=== PATIENT | male | born 1960 | race Caucasian/White ===

== ENCOUNTER 2017-03-29 07:10 | Emergency (ER) | payer OTHER ==
[2017-03-29 07:44] LABS: Basophils % (Auto) 0.4 % (0.0-1.8); Eosinophils % (Auto) 1.2 % (0.0-4.3); Hematocrit 40.9 % (35.5-45.6); Hemoglobin 13.8 gm/dl (11.8-15.2); Mean Corpuscular HGB Conc 34 % (32-34); Mean Corpuscular Hemoglobin 31 pg (28-32); Mean Corpuscular Volume 91 fl (84-94); Platelet Count 246 K/mm3 (140-440); Red Blood Count 4.51 M/mm3 (3.65-5.03); White Blood Count 11.4 K/mm3 (4.5-11.0)
[2017-03-29 08:03] LABS: Anion Gap 17 mmol/L; BUN/Creatinine Ratio 15.45; Blood Urea Nitrogen 17 mg/dL (9-20); Carbon Dioxide 26 mmol/L (22-30); Chloride 100.9 mmol/L (98-107); Glucose 102 mg/dL (75-100); Potassium 3.5 mmol/L (3.6-5.0); Sodium 140 mmol/L (137-145)
[2017-03-29] MEDS ORDERED: DECADRON IV ONE (09:10)
[2017-03-29] MEDS ORDERED: ZOFRAN IV ONE (09:10)
[2017-03-29] MEDS ORDERED: MORPHINE IV ONE (09:10)
[2017-03-29] MEDS ORDERED: APRESOLINE IV ONE (09:10)
[2017-03-29] MEDS ORDERED: NACL 0.9% 1000 ML 500 ML IV ONE (10:48)
[2017-03-29] MEDS ORDERED: NACL 0.9% 500 ML 500 ML ONE (10:49)
--- NOTE | 2017-03-29 10:54 | Emergency Department Report ---
ED General Adult HPI - General Chief complaint: Extremity Injury, Upper Stated complaint: PAIN IN LT ARM/LT KNEE Time Seen by Provider: 03/29/17 08:56 Source: patient, family Mode of arrival: Ambulatory Limitations: Language Barrier - History of Present Illness Initial comments: Patient states that intermittently he has pain and swelling of his right great toe. This pain sometimes involves his knee and the dorsum of his foot. This time he has acute pain in his left wrist. He has not been previously diagnosed with gout. He denies fever. He denies any symptoms. He hasn't been to the doctor in some time but does not have a previous history of hypertension. He presented to the emergency department with a blood pressure of 214/132. -: Gradual, week(s) (1-2 weeks wrist pain) Location: left, upper extremity Radiation: non-radiation Severity scale (0 -10): 10 Quality: aching Consistency: constant Improves with: none Worsens with: none Treatments Prior to Arrival: none - Related Data Previous Rx's Medication Instructions Recorded Last Taken Type HYDROcodone/APAP 5-325 [[place] 1 each PO Q6HR PRN #10 tablet 03/29/17 Unknown Rx 5/325] Indomethacin Sr (Nf) [Indocin Sr 75 mg PO Q12HR #10 capsule.er 03/29/17 Unknown Rx (Nf)] amLODIPine [Norvasc] 5 mg PO DAILY #30 tab 03/29/17 Unknown Rx Allergies Allergy/AdvReac Type Severity Reaction Status Date / Time No Known Allergies Allergy Unverified 03/29/17 07:15 ED Review of Systems ROS: Stated complaint: PAIN IN LT ARM/LT KNEE Other details as noted in HPI Constitutional: denies: chills, fever Eyes: denies: eye pain, eye discharge, vision change ENT: denies: ear pain, throat pain Respiratory: denies: cough, shortness of breath, wheezing Cardiovascular: denies: chest pain, palpitations Endocrine: no symptoms reported Gastrointestinal: denies: abdominal pain, nausea, diarrhea Genitourinary: denies: urgency, dysuria Musculoskeletal: as per HPI, joint swelling, arthralgia. denies: back pain Skin: denies: rash, lesions Neurological: denies: headache, weakness, paresthesias Psychiatric: denies: anxiety, depression Hematological/Lymphatic: denies: easy bleeding, easy bruising ED Past Medical Hx - Past Medical History Previous Medical History?: No - Surgical History Past Surgical History?: No - Social History Smoking Status: Never Smoker Substance Use Type: Alcohol - Medications Home Medications: Home Medications Medication Instructions Recorded Confirmed Last Taken Type HYDROcodone/APAP 5-325 [[place] 1 each PO Q6HR PRN #10 tablet 03/29/17 Unknown Rx 5/325] Indomethacin Sr (Nf) [Indocin Sr 75 mg PO Q12HR #10 capsule.er 03/29/17 Unknown Rx (Nf)] amLODIPine [Norvasc] 5 mg PO DAILY #30 tab 03/29/17 Unknown Rx ED Physical Exam - General General appearance: alert, in no apparent distress - Head Head exam: Present: atraumatic, normocephalic - Eye Eye exam: Present: normal appearance. Absent: scleral icterus - ENT ENT exam: Present: mucous membranes moist - Neck Neck exam: Present: normal inspection - Respiratory Respiratory exam: Present: normal lung sounds bilaterally. Absent: respiratory distress - Cardiovascular Cardiovascular Exam: Present: regular rate, normal rhythm. Absent: systolic murmur, diastolic murmur, rubs, gallop - GI/Abdominal GI/Abdominal exam: Present: soft, normal bowel sounds. Absent: distended, tenderness, guarding, rebound, rigid - Rectal Rectal exam: Present: deferred - Extremities Exam Extremities exam: Present: other (erythema and apparent effusion of the left wrist. Pain on range of motion. Appears typical for gout. No other articulations have positive findings. Feet look okay.) - Back Exam Back exam: Present: normal inspection - Neurological Exam Neurological exam: Present: alert, oriented X3, CN II-XII intact. Absent: motor sensory deficit - Psychiatric Psychiatric exam: Present: normal affect, normal mood - Skin Skin exam: Present: warm, dry, intact, normal color. Absent: rash ED Course Vital Signs 03/29/17 03/29/17 03/29/17 07:16 08:24 10:10 Temperature 98.1 F 98.9 F Pulse Rate 80 74 71 Respiratory 20 16 Rate Blood Pressure 214/132 158/89 Blood Pressure 159/99 [Right] O2 Sat by Pulse 98 98 Oximetry 03/29/17 10:12 Temperature Pulse Rate Respiratory 16 Rate Blood Pressure Blood Pressure [Right] O2 Sat by Pulse Oximetry - Reevaluation(s) Reevaluation #1: Patient's blood pressure was a little bit labile. First the nurse held the hydralazine and then later she gave it was in the systolic went to 180. (10 mg) . His blood pressure did drift down low my desired target. Therefore he was given a bolus of normal saline. On reevaluation he states that he feels fine. He'll be observed until his blood pressure has improved bit more. He will be discharged on amlodipine [place] and Indocin. He will be referred to [facility] 03/29/17 10:52 ED Medical Decision Making - Lab Data Result diagrams: 03/29/17 07:32 03/29/17 07:32 Laboratory Results - last 24 hr 03/29/17 03/29/17 07:32 07:32 WBC 11.4 H RBC 4.51 Hgb 13.8 Hct 40.9 MCV 91 MCH 31 MCHC 34 RDW 13.0 L Plt Count 246 Lymph % (Auto) 14.9 [place] % (Auto) 4.9 Eos % (Auto) 1.2 Baso % (Auto) 0.4 Lymph # 1.7 [place] # 0.6 Eos # 0.1 Baso # 0.0 Seg Neutrophils % 78.6 H Seg Neutrophils # 9.0 H Sodium 140 Potassium 3.5 L Chloride 100.9 Carbon Dioxide 26 Anion Gap 17 BUN 17 Creatinine 1.1 Estimated GFR > 60 BUN/Creatinine Ratio 15.45 Glucose 102 H Calcium 9.0 Troponin T < 0.010 - EKG Data -: EKG Interpreted by Me EKG shows normal: sinus rhythm, axis, intervals, ST-T waves - EKG Data Interpretation: LVH (consistent with LVH and associated changes) Critical care attestation.: If time is entered above; I have spent that time in minutes in the direct care of this critically ill patient, excluding procedure time. ED Disposition Clinical Impression: Acute gouty arthritis, Uncontrolled hypertension Disposition: - TO HOME OR SELFCARE Is pt being admited?: No Does the pt Need Aspirin: No Condition: Stable Instructions: Hypertension (ED), Acute Gouty Arthritis (ED) Additional Instructions: Follow-up with a primary care provider. Return any acute change or problem. Return if the joint swelling is not improved. Follow-up on your high blood pressure is essential. Prescriptions: amLODIPine [Norvasc] 5 mg PO DAILY #30 tab HYDROcodone/APAP 5-325 [[place] 5/325] 1 each PO Q6HR PRN #10 tablet PRN Reason: Pain Indomethacin Sr (Nf) [Indocin Sr (Nf)] 75 mg PO Q12HR #10 capsule.er Referrals: PRIMARY CARE, [Primary Care Provider] - 3-5 Days [facility] [Provider Group] - 3-5 Days Time of Disposition: 10:55
[2017-03-29 11:54] VITALS: BP 135/77
== END 2017-03-29 11:54 | disposition home or self-care (01) ==
LOC: ED 07:10
DX: I10 Essential (primary) hypertension (principal)
CPT/HCPCS: 36415; 80048; 84484; 85025; 93005; 93010; 96361; 96374; 96375; 99284; J0360; J1100; J2270; J2405; J7040

== ENCOUNTER 2017-05-28 09:15 | Emergency (ER) | payer OTHER ==
[2017-05-28] MEDS ORDERED: MOTRIN PO ONE (09:35)
--- NOTE | 2017-05-28 10:13 | XRay Report ---
Right hand: Pain. There is swelling around the mid hand and specifically along the dorsal and ulnar sides. No foreign body and no laceration identified. No underlying bone or joint abnormality. Impression: Nonspecific swelling.
[2017-05-28] MEDS ORDERED: CATAPRES PO ONE (12:22)
--- NOTE | 2017-05-28 12:28 | Emergency Department Report ---
Upper Extremity - HPI Chief Complaint: Extremity Injury, Upper Stated Complaint: RT HAND PAIN/EARS RINGING Upper Extremity: Right Hand Occurred When: 1 Day Mechanism: Other (pt has history of gout) Severity: mild Symptoms: Yes Pain with Movement, Yes Limited Range of Movement, Yes Swelling, No Deformity, No Numbness, No Weakness, No Bruising/Ecchymosis, No Laceration or Abrasion Other History: 57 year old male presents to ED with gout attack in right hand. patient has history of gout. patient is neurologically intact and in no acute distress. ED Review of Systems ROS: Stated complaint: RT HAND PAIN/EARS RINGING Other details as noted in HPI Constitutional: denies: chills, fever Eyes: denies: eye pain, eye discharge, vision change ENT: denies: ear pain, throat pain Respiratory: denies: cough, shortness of breath, wheezing Cardiovascular: denies: chest pain, palpitations Endocrine: no symptoms reported Gastrointestinal: denies: abdominal pain, nausea, diarrhea Genitourinary: denies: urgency, dysuria Musculoskeletal: joint swelling, arthralgia (right hand). denies: back pain Skin: denies: rash, lesions Neurological: denies: headache, weakness, paresthesias Psychiatric: denies: anxiety, depression Hematological/Lymphatic: denies: easy bleeding, easy bruising ED Past Medical Hx - Past Medical History Previous Medical History?: Yes Hx Hypertension: Yes - Surgical History Past Surgical History?: No - Social History Smoking Status: Unknown if ever smoked Substance Use Type: None - Medications Home Medications: Home Medications Medication Instructions Recorded Confirmed Last Taken Type HYDROcodone/APAP 5-325 [[place] 1 each PO Q6HR PRN #10 tablet 03/29/17 Unknown Rx 5/325] Indomethacin Sr (Nf) [Indocin Sr 75 mg PO QAM #20 capsule.er 05/28/17 Unknown Rx (Nf)] amLODIPine [Norvasc] 5 mg PO DAILY #30 tab 05/28/17 Unknown Rx Upper Extremity Exam - Exam General: Vital signs noted. No distress. Alert and acting appropriately. Head and Torso: No HEENT Abnormality, No Neck Tenderness, No Chest/Lungs Abnormality, No Abdominal Tenderness, No Back Tenderness Shoulder Exam: Yes Normal Range of Motion in Shoulder, No Shoulder Tenderness, No Clavicle Tenderness, No Shoulder Deformity, No AC Joint Tenderness Arm Exam: No Arm/Humerus Tenderness, No Arm Deformity Elbow: Yes Normal Range of Motion in Elbow, No Elbow Tenderness, No Elbow Deformity Forearm: No Forearm Tenderness, No Forearm Deformity, No Pain with Pronation, No Pain with Supination Wrist: No Wrist Tenderness, No Normal ROM in Wrist (limited ROM due to pain), No Wrist Deformity, No Snuffbox Tenderness, No Pain with Axial Thumb Compression Hand: Yes Hand Tenderness, No Hand Deformity, No Digit Tenderness, No Normal ROM in Digit(s) (limited ROM due to pain), No Digit(s) Deformity, No Tendon Dysfunction CMS Exam: Yes Normal Distal Pulses, Yes Normal Capillary Refill, Yes Normal Distal Sensation, No Broken Skin ED Course Vital Signs 05/28/17 09:22 Temperature 97.9 F Pulse Rate 68 Respiratory 16 Rate Blood Pressure 198/128 O2 Sat by Pulse 96 Oximetry ED Medical Decision Making - Lab Data Result diagrams: 05/28/17 12:45 05/28/17 12:45 Labs 05/28/17 05/28/17 12:45 12:45 WBC 9.0 RBC 4.26 Hgb 13.3 Hct 39.1 MCV 92 MCH 31 MCHC 34 RDW 13.0 L Plt Count 243 Lymph % (Auto) 17.0 [place] % (Auto) 5.9 Eos % (Auto) 1.4 Baso % (Auto) 0.4 Lymph # 1.5 [place] # 0.5 Eos # 0.1 Baso # 0.0 Seg Neutrophils % 75.3 H Seg Neutrophils # 6.8 Sodium 136 L Potassium 3.5 L Chloride 96.9 L Carbon Dioxide 27 Anion Gap 16 BUN 17 Creatinine 1.0 Estimated GFR > 60 BUN/Creatinine Ratio 17.00 Glucose 92 Calcium 9.4 - Radiology Data Radiology results: report reviewed XR hand nonspecific swelling. no foreign body or laceration identified. no underlying bone or joint abnormality. - Medical Decision Making 57 year old male presents to ED with gout attack in right hand/wrist. patient has no acute findings on xray other than nonspecific swelling. patient has decreased pain with norco, IM decadron and IM toradol during ED visit. patient is stable, neurologically intact and in no acute distress. I will also refill patient's BP medications. Patient agrees and understands to follow up with [facility] [place] ([place], [place]). Critical care attestation.: If time is entered above; I have spent that time in minutes in the direct care of this critically ill patient, excluding procedure time. ED Disposition Clinical Impression: Gout attack Qualifiers: Gout site: hand Gout etiology: unspecified cause Laterality: right Qualified Code(s): M10.9 - Gout, unspecified Disposition: TO HOME OR SELFCARE Is pt being admited?: No Does the pt Need Aspirin: No Condition: Stable Instructions: Acute Gouty Arthritis (ED) Additional Instructions: Please go to [facility] for PCP follow up. Prescriptions: amLODIPine [Norvasc] 5 mg PO DAILY #30 tab Indomethacin Sr (Nf) [Indocin Sr (Nf)] 75 mg PO QAM #20 capsule.er Referrals: PRIMARY CARE, [Primary Care Provider] - 3-5 Days
[2017-05-28] MEDS ORDERED: DECADRON IM ONE (12:30)
[2017-05-28] MEDS ORDERED: NORCO 7.5/325 PO ONE (12:30)
[2017-05-28] MEDS ORDERED: TORADOL IM ONE (12:31)
[2017-05-28 12:55] LABS: Basophils % (Auto) 0.4 % (0.0-1.8); Eosinophils % (Auto) 1.4 % (0.0-4.3); Hematocrit 39.1 % (35.5-45.6); Hemoglobin 13.3 gm/dl (11.8-15.2); Mean Corpuscular HGB Conc 34 % (32-34); Mean Corpuscular Hemoglobin 31 pg (28-32); Mean Corpuscular Volume 92 fl (84-94); Platelet Count 243 K/mm3 (140-440); Red Blood Count 4.26 M/mm3 (3.65-5.03)
[2017-05-28 13:12] LABS: Anion Gap 16 mmol/L; Blood Urea Nitrogen 17 mg/dL (9-20); Calcium 9.4 mg/dL (8.4-10.2); Carbon Dioxide 27 mmol/L (22-30); Chloride 96.9 mmol/L (98-107); Glucose 92 mg/dL (75-100); Potassium 3.5 mmol/L (3.6-5.0); Sodium 136 mmol/L (137-145)
[2017-05-28 13:53] VITALS: BP 147/93
== END 2017-05-28 13:53 | disposition home or self-care (01) ==
LOC: ED 09:15
DX: M10.9 Gout, unspecified (principal); I10 Essential (primary) hypertension
CPT/HCPCS: 36415; 73120; 80048; 85025; 96372; 99283; J1100; J1885

== ENCOUNTER 2020-06-15 12:30 | Inpatient (IN) | payer SELFPAY ==
[~2020-06-15 12:30] MED LIST: HEPARIN 10,000 UNITS/10 ML VIAL IV ONE
[2020-06-15] MEDS ORDERED: HEPARIN 1,000 UNIT/1 ML VIAL IV ONE (12:33)
--- NOTE | 2020-06-15 12:36 | Emergency Department Report ---
ED Chest Pain HPI - General Stated Complaint: CHEST PAIN Time Seen by Provider: 06/15/20 12:32 - History of Present Illness Initial Comments: This is a 60-year-old male presents to the emergency department from the office of [facility] after he was evaluated there for some dyspnea on exertion, orthopnea, and some chest and left shoulder pain. Patient does not speak [place]ian so information was obtained from his office note and af ter speaking with 1 of the cardiologists from that service. He appears to have a past medical history of gout, hypertension. He does not appear to be a tobacco smoker and there is no family history of known heart disease. The patient was being seen in the office and had an EKG that showed inferior ST elevations and Q waves but then the repeat EKG was normal with no Q waves and no ST elevation. The patient is going to the [facility] for further diagnostics. We have been asked to obtain cardiac labs and give the patient a 4000 unit heparin bolus. - Related Data Previous Rx's Medication Instructions Recorded Last Taken Type HYDROcodone/APAP 5-325 [[place] 1 each PO Q6HR PRN #10 tablet 03/29/17 Unknown Rx 5/325] Indomethacin Sr (Nf) [Indocin Sr 75 mg PO QAM #20 capsule.er 05/28/17 Unknown Rx (Nf)] amLODIPine 5 mg PO DAILY #30 tab 05/28/17 Unknown Rx Allergies Allergy/AdvReac Type Severity Reaction Status Date / Time No Known Allergies Allergy Verified 06/15/20 12:39 Heart Score - HEART Score History: Moderately suspicious EKG: Non-specific Age: 45-65 Risk factors: 1-2 risk factors Troponin: > 3x normal limit HEART Score: 6 - Critical Actions Critical Actions: 4-6 pts:12-16.6% risk of adverse cardiac event. Should be admitted ED Review of Systems ROS: Stated complaint: CHEST PAIN Other details as noted in HPI Comment: All other systems reviewed and negative Respiratory: orthopnea, shortness of breath Cardiovascular: chest pain. denies: palpitations Musculoskeletal: arthralgia. denies: joint swelling ED Past Medical Hx - Past Medical History Hx Hypertension: Yes - Social History Smoking Status: Unknown if ever smoked Substance Use Type: None - Medications Home Medications: Home Medications Medication Instructions Recorded Confirmed Last Taken Type HYDROcodone/APAP 5-325 [[place] 1 each PO Q6HR PRN #10 tablet 03/29/17 Unknown Rx 5/325] Indomethacin Sr (Nf) [Indocin Sr 75 mg PO QAM #20 capsule.er 05/28/17 Unknown Rx (Nf)] amLODIPine 5 mg PO DAILY #30 tab 05/28/17 Unknown Rx ED Physical Exam - Other Other exam information: GENERAL: The patient is well-developed well-nourished. HENT: Normocephalic. Atraumatic. Patient has moist mucous membranes. EYES: Extraocular motions are intact. NECK: Supple. Trachea is midline. CHEST/LUNGS: Clear to auscultation. There is no respiratory distress noted. HEART/CARDIOVASCULAR: Regular. There is no tachycardia. There is no murmur. ABDOMEN: Abdomen is soft, nontender. Patient has normal bowel sounds. SKIN: Skin is warm and dry. NEURO: The patient is awake, alert, and oriented. The patient is cooperative. Normal speech. MUSCULOSKELETAL: There is no tenderness or deformity. There is no evidence of acute injury. ED Medical Decision Making - Lab Data Result diagrams: 06/15/20 12:45 06/15/20 12:45 - EKG Data -: EKG Interpreted by Me EKG shows normal: sinus rhythm, axis, intervals, QRS complexes, ST-T waves (Isolated mild elevation to lead V6 and slight elevation in lead III. No reciprocal depressions) Rate: normal - EKG Data When compared to previous EKG there are: previous EKG unavailable Interpretation: other (Sinus rhythm at 67 bpm normal intervals, normal axis, slight ST elevation to lead V6 and lead III but no reciprocal depressions) - Radiology Data Radiology results: image reviewed interpreted by me: Chest x-ray shows some interstitial edema. No obvious pneumonia. No pneumothorax. - Medical Decision Making This patient was sent in from the deputy coroner investigator office to have a heart catheterization done. While there was some concern for ST elevation in the inferior leads at the cardiology office, the repeat EKG showed resolution of thi s and the patient was brought in for a heart catheterization. An EKG was also done in the emergency department that once again did not show ST elevation NH. Chest x-ray does not show any pneumonia, pneumothorax but does show some interstitial edema. Patient was given a heparin bolus and sent to the [facility]. In reviewing the patient's blood work, that came back after the patient left the emergency department, he has mild renal insufficiency and does have an elevated troponin level. I reviewed the O[facility] Technician report and the patient apparently had a 100% occlusion of the mid circumflex artery and had a drug- eluting stent placed. He was admitted to the ICU status post cath procedure. Critical Care Time: No Critical care attestation.: If time is entered above; I have spent that time in minutes in the direct care of this critically ill patient, excluding procedure time. ED Disposition Clinical Impression: Acute ST elevation myocardial infarction (STEMI) of inferior wall Hypertension Qualifiers: Hypertension type: essential hypertension Qualified Code(s): I10 - Essential (primary) hypertension Disposition: OP ADMIT IP TO THIS HOSP Is pt being admited?: Yes Condition: Serious Time of Disposition: 18:08
[2020-06-15] MEDS ORDERED: HEPARIN/NS 5000 UNIT/500ML 1,000 ML IR ONE (12:45)
[2020-06-15] MEDS ORDERED: SODIUM CHLORIDE 0.9% 1000 ML 1,000 ML ONE (12:46)
[2020-06-15 12:50] LABS: Basophils % (Auto) 0.6 % (0.0-1.8); Eosinophils # (Auto) 0.1 K/mm3 (0.0-0.4); Eosinophils % (Auto) 1.9 % (0.0-4.3); Hematocrit 32.8 % (35.5-45.6); Hemoglobin 11.4 gm/dl (11.8-15.2); Lymphocytes # (Auto) 1.4 K/mm3 (1.2-5.4); Lymphocytes % (Auto) 21.6 % (13.4-35.0); Mean Corpuscular HGB Conc 35 % (32-34); Mean Corpuscular Volume 92 fl (84-94); Monocytes # (Auto) 0.4 K/mm3 (0.0-0.8); Monocytes % (Auto) 5.7 % (0.0-7.3); Platelet Count 335 K/mm3 (140-440); Red Blood Count 3.58 M/mm3 (3.65-5.03); Red Cell Distribution Width 12.9 % (13.2-15.2)
[2020-06-15] MEDS: fentaNYL 100 MCG/2 ML INJ ONE ×2 (12:59→13:03)
[2020-06-15] MEDS: MIDAZOLAM 2 MG/2 ML INJ ONE ×2 (12:59→13:03)
[2020-06-15] MEDS: HEPARIN 10,000 UNITS/10 ML VIAL ONE ×4 (13:00→14:05)
[2020-06-15] MEDS: LIDOCAINE (2%) 20 MG/1 ML VIAL 20 ML MDV INFILTRATI ONE ×2 (13:00→13:06)
[2020-06-15] MEDS: VERAPAMIL 5 MG/2 ML INJ ONE ×2 (13:04→13:09)
[2020-06-15] MEDS: NITROGLYCERIN SYRINGE 3 ML ONE ×2 (13:04→13:09)
[2020-06-15 13:05] LABS: Creatine Kinase MB 2.5 ng/mL (0.0-4.0); Partial Thromboplastin Time 100.9 Sec. (24.2-36.6)
[2020-06-15] MEDS ORDERED: SODIUM CHLORIDE 0.9% IR ONE (13:41)
[2020-06-15] MEDS ORDERED: HEPARIN IR ONE (13:41)
[2020-06-15] MEDS ORDERED: CLOPIDOGREL 300 MG TAB ONE (14:02)
[2020-06-15 14:06] LABS: Chol/HDL Ratio 4.92 %
[2020-06-15] MEDS ORDERED: ALUM-MAG HYDROXIDE-SIMETHICONE 200-200-20MG/5ML ORAL LIQD 30 ML ONE (14:10)
[2020-06-15 14:20] LABS: Calcium 9.4 mg/dL (8.4-10.2)
[2020-06-15] MEDS ORDERED: SODIUM CHLORIDE 0.9% 1000 ML 1,000 ML IV SCH (14:30)
--- NOTE | 2020-06-15 14:33 | Consultation ---
History of Present Illness Consult date: 06/15/20 Consult reason: other (Acute STEMI) History of present illness: Patient is a 60-year-old Nigerian-speaking male, who presented to her doctor's office today with chest pain and shortness of breath. An EKG done by her senior administrator support in the office revealed transient acute ST elevation in the inferior leads. The patient was given 324 mg of aspirin, sent to the emergency room by ambulance and the hospital STEMI protocol was activated. On emergency cardiac catheterization, we found complete occlusion of the large mid obtuse marginal branch of the circumflex artery. Successful angioplasty was performed, with reestablishment of VINNIE-3 flow. A [id number] Xience drug-eluting stent was deployed covering the lesional segment, with an excellent angiographic result. The patient is admitted to the CCU for post MO management. Limited LV angiography showed a well-preserved overall ejection fraction of 50 to 55%. Past History Past Medical History: hypertension Medications and Allergies Allergies Allergy/AdvReac Type Severity Reaction Status Date / Time No Known Allergies Allergy Verified 06/15/20 12:39 Home Medications Medication Instructions Recorded Confirmed Last Taken Type HYDROcodone/APAP 5-325 [[place] 1 each PO Q6HR PRN #10 tablet 03/29/17 Unknown Rx 5/325] Indomethacin Sr (Nf) [Indocin Sr 75 mg PO QAM #20 capsule.er 05/28/17 Unknown Rx (Nf)] amLODIPine 5 mg PO DAILY #30 tab 05/28/17 Unknown Rx Review of Systems Cardiovascular: chest pain, shortness of breath, no orthopnea, no palpitations, no rapid/irregular heart beat, no edema, no syncope, no lightheadedness Physical Examination Vital Signs Temp Pulse Resp BP Pulse Ox 98.1 F 82 18 157/82 100 06/15/20 12:35 06/15/20 12:35 06/15/20 12:35 06/15/20 12:35 06/15/20 12:35 General appearance: no acute distress HEENT: Positive: PERRL Neck: Positive: neck supple Cardiac: Positive: Reg Rate and Rhythm Lungs: Positive: clear to auscultation Neuro: Positive: Grossly Intact Abdomen: Positive: Soft Male genitourinary: Positive: deferred Skin: Positive: Clear Extremities: Absent: edema Results 06/15/20 12:45 06/15/20 12:45 Cardiac Enzymes 06/15/20 Range/Units 12:45 CK-MB (CK-2) 2.5 (0.0-4.0) ng/mL Coagulation 06/15/20 Range/Units 12:45 PT 13.3 (12.2-14.9) Sec. INR 1.00 (0.87-1.13) APTT 100.9 H* (24.2-36.6) Sec. Lipids 06/15/20 Range/Units 12:45 Triglycerides 155 H (2-149) mg/dL Cholesterol 128 (50-199) mg/dL HDL Cholesterol 26 L (40-59) mg/dL Cholesterol/HDL Ratio 4.92 % CBC 06/15/20 Range/Units 12:45 WBC 6.6 (4.5-11.0) K/mm3 RBC 3.58 L (3.65-5.03) M/mm3 Hgb 11.4 L (11.8-15.2) gm/dl Hct 32.8 L (35.5-45.6) % Plt Count 335 (140-440) K/mm3 Lymph # 1.4 (1.2-5.4) K/mm3 [place] # 0.4 (0.0-0.8) K/mm3 Eos # 0.1 (0.0-0.4) K/mm3 Baso # 0.0 (0.0-0.1) K/mm3 Comprehensive Metabolic Panel 06/15/20 Range/Units 12:45 Sodium 136 L (137-145) mmol/L Potassium 3.9 (3.6-5.0) mmol/L Chloride 99.2 (98-107) mmol/L Carbon Dioxide 20 L (22-30) mmol/L BUN 27 H (9-20) mg/dL Creatinine 1.4 H (0.8-1.3) mg/dL Glucose 116 H (75-100) mg/dL Calcium 9.4 (8.4-10.2) mg/dL EKG interpretations - Telemetry EKG Rhythm: Sinus Rhythm Assessment and Plan - Patient Problems (1) Acute ST elevation myocardial infarction (STEMI) of inferior wall Current Visit: Yes Status: Acute Plan to address problem: Status post emergency cardiac catheterization, with successful angioplasty and stenting of a completely occluded mid obtuse marginal branch of the circumflex artery. Excellent angiographic result post coronary intervention. Admitted to the CCU for post intervention and post MO supportive management. Recommended medical therapy aspirin 325mg, Plavix 75mg, metoprolol 50mg twice daily, atorvastatin 40 mg daily, Imdur 30 mg daily.
[2020-06-15] MEDS: LISINOPRIL 5 MG TAB PO SCH (15:04)
[2020-06-15] MEDS: METOPROLOL TARTRATE 50 MG TAB PO SCH ×2 (15:04→21:59)
[2020-06-15] MEDS ORDERED: MORPHINE 4 MG/1 ML INJ IV PRN (15:13)
[2020-06-15] MEDS ORDERED: ACETAMINOPHEN 325 MG TAB PO PRN (15:13)
[2020-06-15] MEDS ORDERED: SENNOSIDES 8.6 MG TAB PO PRN (15:13)
--- NOTE | 2020-06-15 16:15 | Cardiac Catherization Report ---
CARDIAC CATHETERIZATION AND CORONARY ANGIOPLASTY REPORT REASON FOR PROCEDURE: The patient is a 60-year-old Faroese speaking male who presented to his development intern's office with chest pain and ECG demonstrated transient, inferior ST-elevation myocardial infarction. He was sent to the Emergency Room and STEMI protocol was activated. The patient was taken to the cardiac catheterization lab for emergency cardiac catheterization under STEMI protocol. PROCEDURES: 1. Left heart catheterization. 2. Selective left and right coronary angiography. 3. Left ventricular angiography. 4. Sedation time, start 13:07, end 14:00. The patient was prepped and draped in a sterile fashion under emergency protocol. The right radial cath site was prepped and draped after a negative Eliceo's test. The right radial artery was entered using the Seldinger technique followed by placement of a 6-Welsh hydrophilic sheath. Routine radial cocktail was administered via the sheath. Selective left and right coronary angiography was performed using #3.5 left Giovanni and #4 right Giovanni. The right Giovanni was used for left ventricular angiography. The angiograms were reviewed. CORONARY ANGIOGRAPHY: Left main coronary artery was free of significant disease. The left anterior descending artery contained mild diffuse atherosclerosis of its proximal, mid, and distal segments. There was mild atherosclerosis of the diagonal branches. The circumflex artery consists of one large obtuse marginal, which was occluded in its mid segment. This was the infarct-related lesion. The right coronary artery was dominant and contained diffuse mild atherosclerosis of its proximal, mid, and distal segments. Left ventricular systolic function was well preserved with ejection fraction of 50%-55%. CORONARY ANGIOPLASTY: We commenced with ad hoc, primary angioplasty of the circumflex. Optimal guide support was obtained using a 3.5 XB guiding catheter. A 0.014 inch [employer] 50 guidewire was used to successfully penetrate the occluded vessel, following wire placement, adequate predilatation balloon angioplasty was carried out using a 3.0 mm balloon catheter. VINNIE 3 flow was reestablished. We found a long segment of disease with significant residual stenosis. We then deployed a 3.5 x 33 mm Xience drug-eluting stent, covering the entire lesional segment. This stent was inflated to optimal pressures. We performed additional post-dilatation using a 4.0 x15 mm noncompliant balloon, following which there was an excellent angiographic result, 0 residual stenosis. VINNIE 3 flow was reestablished in the vessel post-intervention. CONCLUSION: 1. Acute inferior wall ST elevation myocardial infarction. 2. Emergency cardiac catheterization. 3. 100% occlusion of the mid circumflex artery is the infarct-related lesion. 4. Successful angioplasty and stenting with ultimate deployment of a 3.5 x 33 mm drug-eluting stent, postdilated with a 4.0 mm balloon catheter. 5. Well preserved overall left ventricular systolic ejection fraction of 50%-55%. RECOMMENDATIONS: The patient will be placed on optimal, guideline directed medical therapy including dual oral antiplatelet therapy with aspirin and Plavix, admitted to the CCU for post-KS supportive management. JOB# [id number] MACARIO/NTS
--- NOTE | 2020-06-15 17:21 | XRay Report ---
CHEST 1 VIEW INDICATION / CLINICAL INFORMATION: CP. COMPARISON: None available. FINDINGS: SUPPORT DEVICES: None. HEART / MEDIASTINUM: Borderline enlarged. LUNGS / PLEURA: There are diffuse interstitial opacities. No pneumothorax. No pleural effusion. ADDITIONAL FINDINGS: No significant additional findings. IMPRESSION: 1. Diffuse interstitial opacities are most compatible with pulmonary edema. 2. Borderline cardiomegaly. Signer Name: Nikos Sampson MD Signed: 06/15/2020 5:16 PM Workstation Name: [id number]
--- NOTE | 2020-06-15 17:54 | History and Physical Report ---
History of Present Illness Date of examination: 06/15/20 Date of admission: 06/15/20 15:13 Chief complaint: Sent from cardiology clinic for chest pain and abnormal EKG History of present illness: Mr. Segovia is a 60-year-old [id number]-nlsjlfqi male apparently was seen in the cardiology office earlier today for chest pain and was noted to have Q waves with ST elevations in the inferior leads and he was sent to the ED with STEMI protocol. Subsequently patient was taken to the [facility] and had successful angioplasty with drug-eluting stent into the left circumflex artery. Unable to get any history from the patient due to language barrier. He is alert and oriented and states that his chest pain has been resolved. He does not appear to be short of breath. ED and cardiology notes reviewed Past History Past Medical History: hypertension, other (Gout) Past Surgical History: No surgical history Social history: no significant social history Family history: no significant family history Medications and Allergies Allergies Allergy/AdvReac Type Severity Reaction Status Date / Time No Known Allergies Allergy Verified 06/15/20 12:39 Home Medications Medication Instructions Recorded Confirmed Last Taken Type HYDROcodone/APAP 5-325 [[place] 1 each PO Q6HR PRN #10 tablet 03/29/17 Unknown Rx 5/325] Indomethacin Sr (Nf) [Indocin Sr 75 mg PO QAM #20 capsule.er 05/28/17 Unknown Rx (Nf)] amLODIPine 5 mg PO DAILY #30 tab 05/28/17 Unknown Rx Active Meds: Active Medications Acetaminophen (Tylenol) 650 mg PO Q6H PRN PRN Reason: Pain MILD(1-3)/Fever >100.5/MORA Aspirin (Ecotrin) 325 mg PO QDAY RAÚL Atorvastatin Calcium (Lipitor) 40 mg PO QHS RAÚL Clopidogrel Bisulfate (Plavix) 75 mg PO QDAY [facility] Heparin Sodium (Porcine) (Heparin) 5,000 unit SUB-Q Q8HR RAÚL Sodium Chloride (Nacl 0.9% 1000 Ml) 1,000 mls @ 100 mls/hr IV DIRECT RAÚL Stop: 06/16/20 02:29 Isosorbide Mononitrate (Imdur) 30 mg PO QDAY [facility] Last Admin: 06/15/20 15:04 Dose: 30 mg Documented by: Lisinopril (Zestril) 5 mg PO QDAY RAÚL Last Admin: 06/15/20 15:04 Dose: 5 mg Documented by: Metoprolol Tartrate (Metoprolol) 50 mg PO BID [facility] Last Admin: 06/15/20 15:04 Dose: 50 mg Documented by: Morphine Sulfate (Morphine) 2 mg IV Q4H PRN PRN Reason: Pain , Severe (7-10) Senna (Senokot) 8.6 mg PO BID PRN PRN Reason: Constipation Sodium Chloride (Sodium Chloride Flush Syringe 10 Ml) 10 ml IV BID [facility] Sodium Chloride (Sodium Chloride Flush Syringe 10 Ml) 10 ml IV PRN PRN PRN Reason: LINE FLUSH Review of Systems All systems: negative (Limited due to language barrier and essentially unremarkable) Exam - Constitutional Vitals: Temp Pulse Resp BP Pulse Ox 98.1 F 63 19 152/96 95 06/15/20 12:35 06/15/20 16:00 06/15/20 16:00 06/15/20 16:00 06/15/20 16:00 General appearance: Present: no acute distress, well-nourished - EENT Eyes: Present: PERRL, EOM intact ENT: hearing intact, clear oral mucosa - Neck Neck: Present: supple, normal ROM - Respiratory Respiratory effort: normal Respiratory: bilateral: CTA - Cardiovascular Rhythm: regular Heart Sounds: Present: S1 & S2 - Extremities Extremities: No edema - Abdominal General gastrointestinal: Present: soft, non-tender. Absent: hepatomegaly, splenomegaly Male genitourinary: Present: deferred - Rectal Rectal Exam: deferred - Integumentary Integumentary: Present: clear - Musculoskeletal Musculoskeletal: strength equal bilaterally - Psychiatric Psychiatric: appropriate mood/affect - Neurologic Neurologic: no focal deficits HEART Score - HEART Score Troponin: Troponin T 2.940 ng/mL (0.00-0.029) H* 06/15/20 12:45 Results - Labs CBC & Chem 7: 06/15/20 12:45 06/15/20 12:45 Labs: Abnormal lab results 06/15/20 06/15/20 06/15/20 Range/Units 12:45 12:45 12:45 RBC 3.58 L (3.65-5.03) M/mm3 Hgb 11.4 L (11.8-15.2) gm/dl Hct 32.8 L (35.5-45.6) % MCHC 35 H (32-34) % RDW 12.9 L (13.2-15.2) % Seg Neutrophils % 70.2 H (40.0-70.0) % APTT 100.9 H* (24.2-36.6) Sec. Sodium 136 L (137-145) mmol/L Carbon Dioxide 20 L (22-30) mmol/L BUN 27 H (9-20) mg/dL Creatinine 1.4 H (0.8-1.3) mg/dL Glucose 116 H (75-100) mg/dL Total Creatine Kinase 7 L (55-170) units/L CK-MB (CK-2) Rel Index 35.7 H (0-4) Troponin T 2.940 H* (0.00-0.029) ng/mL Triglycerides 155 H (2-149) mg/dL HDL Cholesterol 26 L (40-59) mg/dL Assessment and Plan - Patient Problems (1) Acute ST elevation myocardial infarction (STEMI) of inferior wall Current Visit: Yes Status: Acute Plan to address problem: Status post LHC/PCI Cardiac cath note reviewed Continue beta-dov,. Statin, aspirin and Plavix and Imdur (2) Hypertension Current Visit: Yes Status: Chronic Qualifiers: Hypertension type: essential hypertension Qualified Code(s): I10 - E ssential (primary) hypertension Plan to address problem: Continue amlodipine (3) Acute kidney injury Current Visit: Yes Status: Acute Plan to address problem: Baseline renal function status is not known Avoid nephrotoxins Monitor renal function (4) Normocytic anemia Current Visit: Yes Status: Chronic Plan to address problem: Mild No overt bleed Monitor H&H
[2020-06-15] MEDS: HEPARIN 5,000 UNIT/1 ML VIAL SUB-Q SCH (22:02)
--- NOTE | 2020-06-16 03:18 | XRay Report ---
CHEST 1 VIEW INDICATION: post pci. COMPARISON: Previous day. FINDINGS: Support devices: None. Heart: Stable cardiomegaly. Lungs/Pleura: Increased interstitial markings remain with mild improvement. Additional findings: None. IMPRESSION: Mild improvement. Signer Name: Fan Keller MD Signed: 06/16/2020 3:14 AM Workstation Name: [id number]
[2020-06-16 05:56] LABS: Basophils % (Auto) 0.3 % (0.0-1.8); Eosinophils # (Auto) 0.2 K/mm3 (0.0-0.4); Eosinophils % (Auto) 2.6 % (0.0-4.3); Hemoglobin 9.9 gm/dl (11.8-15.2); Lymphocytes # (Auto) 0.9 K/mm3 (1.2-5.4); Lymphocytes % (Auto) 15.4 % (13.4-35.0); Mean Corpuscular HGB Conc 34 % (32-34); Mean Corpuscular Volume 94 fl (84-94); Monocytes # (Auto) 0.5 K/mm3 (0.0-0.8); Monocytes % (Auto) 7.5 % (0.0-7.3); Platelet Count 306 K/mm3 (140-440); Red Blood Count 3.09 M/mm3 (3.65-5.03); Red Cell Distribution Width 12.7 % (13.2-15.2)
[2020-06-16 06:22] LABS: Calcium 8.9 mg/dL (8.4-10.2)
--- NOTE | 2020-06-16 06:54 | Progress Note ---
Assessment and Plan Assessment and plan: --Acute inferior wall ST elevation myocardial infarction (STEMI) Current Visit: Yes Status: Acute Plan to address problem: S/P LHC/PCI 100% occlusion of the mid circumflex artery patient patient status post angioplasty and stenting KARLOS, LVEF 50 to 55% Continue dual antiplatelets, aspirin and Plavix Beta-blockers, SHIRLENE inhibitors, nitrates and statin Cardiology following --Anemia; drop in H&H Current Visit: Yes Status: Acute Plan to address problem: Hb dropped from 11.4 - 9.9 Repeat H&H, check any evidence of bleeding --Hypertension/well controlled Current Visit: Yes Status: Chronic Plan to address problem: Continue current antihypertensives Metoprolol, and lisinopril --Acute kidney injury/present on admission Current Visit: Yes Status: Acute Plan to address problem: Secondary to vasomotor nephropathy Resolved, creatinine within normal range Avoid nephrotoxins. --Dyslipidemia; Current Visit: Yes Status: Acute Plan to address problem: Statin, low-cholesterol diet. --DVT prophylaxis Current Visit: Yes Status: Acute Heparin/SCD We will closely monitor patient and adjust management as needed Follow cardiology recommendations, stable to be transferred out of ICU Plan of care reviewed with the patient and his nurse The high probability of a clinically significant, sudden or life threatening deterioration of the [Cardiovascular, renal and metabolic] system(s) required my full and direct attention, intervention and personal management.The aggregate critical care time was [32] minutes. This time is in addition to time spent performing reported procedures but includes the following: [x] Data Review and interpretation [x] Patient assessment and monitoring of vital signs [x] Documentation [x] Medication orders and management We will closely monitor the patient and adjust the management as needed Plan of care reviewed with the patient's nurse History Interval history: Patient was admitted with acute ST elevation [place] Underwent emergent left heart catheterization status post PCI I seen and examined the patient at the bedside this morning Patient feels better no new complaints, denies chest pain or shortness of breath Ate breakfast tolerated well Vital signs noted Hospitalist Physical - Constitutional Vitals: Temp Pulse Resp BP Pulse Ox 97.8 F 68 20 120/68 100 06/16/20 03:29 06/16/20 06:00 06/16/20 06:00 06/16/20 06:00 06/16/20 06:00 General appearance: Present: no acute distress, well-nourished - EENT Eyes: Present: PERRL, EOM intact - Neck Neck: Present: supple, normal ROM - Respiratory Respiratory effort: normal Respiratory: bilateral: diminished, negative: rales, rhonchi, wheezing - Cardiovascular Rhythm: regular Heart Sounds: Present: S1 & S2 - Extremities Extremities: no ischemia, No edema - Abdominal General gastrointestinal: soft, non-tender, non-distended, normal bowel sounds - Integumentary Integumentary: Present: clear, warm - Psychiatric Psychiatric: appropriate mood/affect, cooperative - Neurologic Neurologic: moves all extremities HEART Score - HEART Score EKG: Non-specific Age: 45-65 Risk factors: 1-2 risk factors Troponin: Troponin T 2.840 ng/mL (0.00-0.029) H* 06/16/20 04:20 Troponin: > 3x normal limit - Critical Actions Critical Actions: 4-6 pts:12-16.6% risk of adverse cardiac event. Should be admitted Results - Labs CBC & Chem 7: 06/16/20 10:05 06/16/20 04:20 Labs: Laboratory Last Values WBC 6.0 K/mm3 (4.5-11.0) 06/16/20 04:20 RBC 3.09 M/mm3 (3.65-5.03) L 06/16/20 04:20 Hgb 9.9 gm/dl (11.8-15.2) L 06/16/20 04:20 Hct 29.0 % (35.5-45.6) L 06/16/20 04:20 MCV 94 fl (84-94) 06/16/20 04:20 MCH 32 pg (28-32) 06/16/20 04:20 MCHC 34 % (32-34) 06/16/20 04:20 RDW 12.7 % (13.2-15.2) L 06/16/20 04:20 Plt Count 306 K/mm3 (140-440) 06/16/20 04:20 Lymph % (Auto) 15.4 % (13.4-35.0) 06/16/20 04:20 [place] % (Auto) 7.5 % (0.0-7.3) H 06/16/20 04:20 Eos % (Auto) 2.6 % (0.0-4.3) 06/16/20 04:20 Baso % (Auto) 0.3 % (0.0-1.8) 06/16/20 04:20 Lymph # 0.9 K/mm3 (1.2-5.4) L 06/16/20 04:20 [place] # 0.5 K/mm3 (0.0-0.8) 06/16/20 04:20 Eos # 0.2 K/mm3 (0.0-0.4) 06/16/20 04:20 Baso # 0.0 K/mm3 (0.0-0.1) 06/16/20 04:20 Seg Neutrophils % 74.2 % (40.0-70.0) H 06/16/20 04:20 Seg Neutrophils # 4.4 K/mm3 (1.8-7.7) 06/16/20 04:20 PT 13.3 Sec. (12.2-14.9) 06/15/20 12:45 INR 1.00 (0.87-1.13) 06/15/20 12:45 APTT 100.9 Sec. (24.2-36.6) H* 06/15/20 12:45 Sodium 138 mmol/L (137-145) 06/16/20 04:20 Potassium 4.0 mmol/L (3.6-5.0) 06/16/20 04:20 Chloride 101.6 mmol/L (98-107) 06/16/20 04:20 Carbon Dioxide 24 mmol/L (22-30) 06/16/20 04:20 Anion Gap 16 mmol/L 06/16/20 04:20 BUN 24 mg/dL (9-20) H 06/16/20 04:20 Creatinine 1.3 mg/dL (0.8-1.3) 06/16/20 04:20 Estimated GFR 57 ml/min 06/16/20 04:20 BUN/Creatinine Ratio 18 % 06/16/20 04:20 Glucose 94 mg/dL (75-100) 06/16/20 04:20 Calcium 8.9 mg/dL (8.4-10.2) 06/16/20 04:20 Total Creatine Kinase 152 units/L (55-170) 06/16/20 04:20 CK-MB (CK-2) 3.0 ng/mL (0.0-4.0) 06/16/20 04:20 CK-MB (CK-2) Rel Index 1.9 (0-4) 06/16/20 04:20 Troponin T 2.840 ng/mL (0.00-0.029) H* 06/16/20 04:20 Triglycerides 155 mg/dL (2-149) H 06/15/20 12:45 Cholesterol 128 mg/dL (50-199) 06/15/20 12:45 LDL Cholesterol Direct 84 mg/dL (50-130) 06/15/20 12:45 HDL Cholesterol 26 mg/dL (40-59) L 06/15/20 12:45 Cholesterol/HDL Ratio 4.92 % 06/15/20 12:45 Blood Type B POSITIVE 06/15/20 20:30 Antibody Screen Negative 06/15/20 20:30 [place]/IV: Voiding Method Urinal IV Catheter Type [Left Peripheral IV Antecubital] Active Medications - Current Medications Current Medications: Generic Name Dose Route Start Last Admin Trade Name Freq PRN Reason Stop Dose Admin Acetaminophen 650 mg 06/15/20 15:13 Tylenol PO Q6H PRN Pain MILD(1-3)/Fever >100.5/MORA Aspirin 325 mg 06/16/20 10:00 Ecotrin PO QDAY [facility] Atorvastatin Calcium 40 mg 06/15/20 22:00 06/15/20 22:00 Lipitor PO 40 mg QHS RAÚL Administration Clopidogrel Bisulfate 75 mg 06/16/20 10:00 Plavix PO QDAY [facility] Heparin Sodium (Porcine) 5,000 unit 06/15/20 22:00 06/15/20 22:02 Heparin SUB-Q 5,000 unit Q8HR RAÚL Administration Isosorbide Mononitrate 30 mg 06/15/20 15:00 06/15/20 15:04 Imdur PO 30 mg QDAY RAÚL Administration Lisinopril 5 mg 06/15/20 15:00 06/15/20 15:04 Zestril PO 5 mg QDAY [facility] Administration Metoprolol Tartrate 50 mg 06/15/20 15:00 06/15/20 21:59 Metoprolol PO 50 mg BID RAÚL Administration Morphine Sulfate 2 mg 06/15/20 15:13 Morphine IV Q4H PRN Pain , Severe (7-10) Senna 8.6 mg 06/15/20 15:13 Senokot PO BID PRN Constipation Sodium Chloride 10 ml 06/15/20 16:00 06/15/20 16:41 Sodium Chloride Flush Syringe 10 Ml IV 10 ml BID RAÚL Administration Sodium Chloride 10 ml 06/15/20 15:13 Sodium Chloride Flush Syringe 10 Ml IV PRN PRN LINE FLUSH
[2020-06-16] MEDS: HEPARIN 5,000 UNIT/1 ML VIAL SUB-Q SCH ×3 (07:18→22:05)
[2020-06-16 10:20] LABS: Hematocrit 29.5 % (35.5-45.6); Hemoglobin 10.3 gm/dl (11.8-15.2)
[2020-06-16] MEDS: LISINOPRIL 5 MG TAB PO SCH (11:27)
[2020-06-16] MEDS: ASPIRIN EC 325 MG TAB PO SCH (11:27)
[2020-06-16] MEDS: CLOPIDOGREL 75 MG TAB PO SCH (11:28)
[2020-06-16] MEDS: METOPROLOL TARTRATE 50 MG TAB PO SCH ×2 (11:28→22:04)
[2020-06-17] MEDS: HEPARIN 5,000 UNIT/1 ML VIAL SUB-Q SCH ×3 (05:23→22:47)
[2020-06-17 07:23] LABS: Basophils % (Auto) 0.6 % (0.0-1.8); Eosinophils # (Auto) 0.1 K/mm3 (0.0-0.4); Eosinophils % (Auto) 2.7 % (0.0-4.3); Hematocrit 33.6 % (35.5-45.6); Hemoglobin 11.4 gm/dl (11.8-15.2); Lymphocytes # (Auto) 0.9 K/mm3 (1.2-5.4); Lymphocytes % (Auto) 17.4 % (13.4-35.0); Mean Corpuscular HGB Conc 34 % (32-34); Mean Corpuscular Volume 93 fl (84-94); Monocytes # (Auto) 0.3 K/mm3 (0.0-0.8); Monocytes % (Auto) 5.6 % (0.0-7.3); Platelet Count 362 K/mm3 (140-440); Red Blood Count 3.62 M/mm3 (3.65-5.03); Red Cell Distribution Width 12.7 % (13.2-15.2)
[2020-06-17 07:34] LABS: Calcium 9.4 mg/dL (8.4-10.2)
[2020-06-17] MEDS: CLOPIDOGREL 75 MG TAB PO SCH (10:37)
[2020-06-17] MEDS: METOPROLOL TARTRATE 50 MG TAB PO SCH ×2 (10:37→22:47)
[2020-06-17] MEDS: ASPIRIN EC 325 MG TAB PO SCH (10:38)
[2020-06-17] MEDS: LISINOPRIL 5 MG TAB PO SCH (10:38)
--- NOTE | 2020-06-17 11:23 | Progress Note ---
Subjective Date of service: 06/17/20 Interval history: Impression Post STEMI and KARLOS 100% C/X, EF 50-55% at time of [place]. HTN Hyperlipidemia Plan Stable on floor so far. Cont meds, mild ectopy at time of my visit, cont BB. HCT has stabilized, cont DAPT Statin therapy initiated Reassess in AM Objective Vital Signs Temp Pulse Pulse Resp BP Pulse Ox 06/17/20 10:39 96 H 131/81 06/17/20 10:38 131/81 06/17/20 10:37 96 H 06/17/20 07:52 98.1 F 73 18 144/95 98 06/17/20 05:01 98.2 F 83 20 138/88 95 06/17/20 00:03 98.4 F 81 20 129/82 94 06/16/20 22:00 79 06/16/20 20:49 20 06/16/20 20:00 86 22 137/83 97 06/16/20 19:51 97.8 F 06/16/20 19:00 79 12 137/83 95 06/16/20 18:00 83 24 123/65 95 06/16/20 17:00 75 23 131/71 99 06/16/20 16:00 74 26 H 135/74 97 06/16/20 15:01 78 25 H 122/73 97 06/16/20 14:58 95 06/16/20 14:00 75 19 125/71 98 06/16/20 13:00 72 18 134/76 96 06/16/20 12:00 78 72 29 H 136/68 92 06/16/20 11:28 77 127/59 06/16/20 11:27 77 127/59 - Physical Examination HEENT: Positive: PERRL Neck: Positive: neck supple Cardiac: Positive: Reg Rate and Rhythm, Other (PVC) Lungs: Positive: Normal Exam Neuro: Positive: Grossly Intact Abdomen: Positive: Soft Skin: Positive: Clear Extremities: Absent: edema - Labs and Meds CBC 06/17/20 Range/Units 06:42 WBC 5.4 (4.5-11.0) K/mm3 RBC 3.62 L (3.65-5.03) M/mm3 Hgb 11.4 L (11.8-15.2) gm/dl Hct 33.6 L (35.5-45.6) % Plt Count 362 (140-440) K/mm3 Lymph # 0.9 L (1.2-5.4) K/mm3 [place] # 0.3 (0.0-0.8) K/mm3 Eos # 0.1 (0.0-0.4) K/mm3 Baso # 0.0 (0.0-0.1) K/mm3 Comprehensive Metabolic Panel 06/17/20 Range/Units 06:42 Sodium 140 (137-145) mmol/L Potassium 4.0 (3.6-5.0) mmol/L Chloride 102.9 (98-107) mmol/L Carbon Dioxide 24 (22-30) mmol/L BUN 21 H (9-20) mg/dL Creatinine 1.4 H (0.8-1.3) mg/dL Glucose 97 (75-100) mg/dL Calcium 9.4 (8.4-10.2) mg/dL
--- NOTE | 2020-06-17 13:31 | Progress Note ---
Assessment and Plan Assessment and plan: --Paroxysmal A. fib flutter: Current Visit: Yes Status: Acute . Plan to address problem: Continue beta-blockers And defer anticoagulation to cardiology --Acute inferior wall ST elevation myocardial infarction (STEMI) Current Visit: Yes Status: Acute Plan to address problem: S/P LHC/PCI 100% occlusion of the mid circumflex artery patient patient status post angioplasty and stenting KARLOS, LVEF 50 to 55% Continue dual antiplatelets, aspirin and Plavix Beta-blockers, SHIRLENE inhibitors, nitrates and statin Cardiology following --Mild drop in H&H, resolved Current Visit: Yes Status: Acute Plan to address problem: Hb dropped from 11.4 - 9.9 -11.4 Repeat H&H, check any evidence of bleeding Change probably secondary to hemodilution --Hypertension/well controlled Current Visit: Yes Status: Chronic Plan to address problem: Continue current antihypertensives Metoprolol, and lisinopril --Acute kidney injury/present on admission Current Visit: Yes Status: Acute Plan to address problem: Secondary to vasomotor nephropathy Resolved, creatinine within normal range Avoid nephrotoxins. --Dyslipidemia; Current Visit: Yes Status: Acute Plan to address problem: Statin, low-cholesterol diet. --DVT prophylaxis Current Visit: Yes Status: Acute Heparin/SCD We will closely monitor patient and adjust management as needed Possible discharge home tomorrow if stable Plan of care reviewed with the patient and his nurse History Interval history: I have seen and examined the patient at the bedside this morning Patient's chart and medications reviewed Patient feels better no new complaints Had an episode of paroxysmal A. fib flutter Denies any chest pain no palpitations Vital signs reviewed Hospitalist Physical - Constitutional Vitals: Temp Pulse Resp BP Pulse Ox 98.1 F 96 H 20 131/81 98 06/17/20 07:52 06/17/20 10:39 06/17/20 10:37 06/17/20 10:39 06/17/20 07:52 General appearance: Present: no acute distress, well-nourished - EENT Eyes: Present: PERRL, EOM intact - Neck Neck: Present: supple, normal ROM - Respiratory Respiratory effort: normal Respiratory: bilateral: diminished, negative: rales, rhonchi, wheezing - Cardiovascular Rhythm: regular Heart Sounds: Present: S1 & S2 - Extremities Extremities: no ischemia, No edema - Abdominal General gastrointestinal: soft, non-tender, non-distended, normal bowel sounds - Integumentary Integumentary: Present: clear, warm - Psychiatric Psychiatric: appropriate mood/affect, cooperative - Neurologic Neurologic: moves all extremities HEART Score - HEART Score EKG: Non-specific Age: 45-65 Risk factors: 1-2 risk factors Troponin: Troponin T 2.840 ng/mL (0.00-0.029) H* 06/16/20 04:20 Troponin: > 3x normal limit - Critical Actions Critical Actions: 4-6 pts:12-16.6% risk of adverse cardiac event. Should be admitted Results - Labs CBC & Chem 7: 06/17/20 06:42 06/17/20 06:42 Labs: Laboratory Last Values WBC 5.4 K/mm3 (4.5-11.0) 06/17/20 06:42 RBC 3.62 M/mm3 (3.65-5.03) L 06/17/20 06:42 Hgb 11.4 gm/dl (11.8-15.2) L 06/17/20 06:42 Hct 33.6 % (35.5-45.6) L 06/17/20 06:42 MCV 93 fl (84-94) 06/17/20 06:42 MCH 31 pg (28-32) 06/17/20 06:42 MCHC 34 % (32-34) 06/17/20 06:42 RDW 12.7 % (13.2-15.2) L 06/17/20 06:42 Plt Count 362 K/mm3 (140-440) 06/17/20 06:42 Lymph % (Auto) 17.4 % (13.4-35.0) 06/17/20 06:42 Bowie % (Auto) 5.6 % (0.0-7.3) 06/17/20 06:42 Eos % (Auto) 2.7 % (0.0-4.3) 06/17/20 06:42 Baso % (Auto) 0.6 % (0.0-1.8) 06/17/20 06:42 Lymph # 0.9 K/mm3 (1.2-5.4) L 06/17/20 06:42 Bowie # 0.3 K/mm3 (0.0-0.8) 06/17/20 06:42 Eos # 0.1 K/mm3 (0.0-0.4) 06/17/20 06:42 Baso # 0.0 K/mm3 (0.0-0.1) 06/17/20 06:42 Seg Neutrophils % 73.7 % (40.0-70.0) H 06/17/20 06:42 Seg Neutrophils # 4.0 K/mm3 (1.8-7.7) 06/17/20 06:42 PT 13.3 Sec. (12.2-14.9) 06/15/20 12:45 INR 1.00 (0.87-1.13) 06/15/20 12:45 APTT 100.9 Sec. (24.2-36.6) H* 06/15/20 12:45 Sodium 140 mmol/L (137-145) 06/17/20 06:42 Potassium 4.0 mmol/L (3.6-5.0) 06/17/20 06:42 Chloride 102.9 mmol/L (98-107) 06/17/20 06:42 Carbon Dioxide 24 mmol/L (22-30) 06/17/20 06:42 Anion Gap 17 mmol/L 06/17/20 06:42 BUN 21 mg/dL (9-20) H 06/17/20 06:42 Creatinine 1.4 mg/dL (0.8-1.3) H 06/17/20 06:42 Estimated GFR 52 ml/min 06/17/20 06:42 BUN/Creatinine Ratio 15 % 06/17/20 06:42 Glucose 97 mg/dL (75-100) 06/17/20 06:42 POC Glucose 104 (70-105) 06/16/20 16:38 Calcium 9.4 mg/dL (8.4-10.2) 06/17/20 06:42 Total Creatine Kinase 152 units/L (55-170) 06/16/20 04:20 CK-MB (CK-2) 3.0 ng/mL (0.0-4.0) 06/16/20 04:20 CK-MB (CK-2) Rel Index 1.9 (0-4) 06/16/20 04:20 Troponin T 2.840 ng/mL (0.00-0.029) H* 06/16/20 04:20 Triglycerides 155 mg/dL (2-149) H 06/15/20 12:45 Cholesterol 128 mg/dL (50-199) 06/15/20 12:45 LDL Cholesterol Direct 84 mg/dL (50-130) 06/15/20 12:45 HDL Cholesterol 26 mg/dL (40-59) L 06/15/20 12:45 Cholesterol/HDL Ratio 4.92 % 06/15/20 12:45 Blood Type B POSITIVE 06/15/20 20:30 Antibody Screen Negative 06/15/20 20:30 Rutledge/IV: Voiding Method Urinal IV Catheter Type [Left Peripheral IV Antecubital] Active Medications - Current Medications Current Medications: Generic Name Dose Route Start Last Admin Trade Name Freq PRN Reason Stop Dose Admin Acetaminophen 650 mg 06/15/20 15:13 06/16/20 22:04 Tylenol PO 650 mg Q6H PRN Administration Pain MILD(1-3)/Fever >100.5/MORA Aspirin 325 mg 06/16/20 10:00 06/17/20 10:38 Ecotrin PO 325 mg QDAY RAÚL Administration Atorvastatin Calcium 40 mg 06/15/20 22:00 06/16/20 22:04 Lipitor PO 40 mg QHS RAÚL Administration Clopidogrel Bisulfate 75 mg 06/16/20 10:00 06/17/20 10:37 Plavix PO 75 mg QDAY RAÚL Administration Heparin Sodium (Porcine) 5,000 unit 06/15/20 22:00 06/17/20 05:23 Heparin SUB-Q 5,000 unit Q8HR RAÚL Administration Isosorbide Mononitrate 30 mg 06/15/20 15:00 06/17/20 10:39 Imdur PO 30 mg QDAY RAÚL Administration Lisinopril 5 mg 06/15/20 15:00 06/17/20 10:38 Zestril PO 5 mg QDAY RAÚL Administration Metoprolol Tartrate 50 mg 06/15/20 15:00 06/17/20 10:37 Metoprolol PO 50 mg BID RAÚL Administration Morphine Sulfate 2 mg 06/15/20 15:13 Morphine IV Q4H PRN Pain , Severe (7-10) Senna 8.6 mg 06/15/20 15:13 Senokot PO BID PRN Constipation Sodium Chloride 10 ml 06/15/20 16:00 06/16/20 22:05 Sodium Chloride Flush Syringe 10 Ml IV 10 ml BID RAÚL Administration Sodium Chloride 10 ml 06/15/20 15:13 Sodium Chloride Flush Syringe 10 Ml IV PRN PRN LINE FLUSH Nutrition/Malnutrition Assess - Dietary Evaluation Nutrition/Malnutrition Findings: Nutrition Notes Start: 06/16/20 10:18 Freq: Status: Active Protocol: Document 06/16/20 10:18 LP (Rec: 06/16/20 10:26 LP [id number]) Nutrition Notes Need for Assessment generated from: hook up Initial or Follow up Brief Note Current Diagnosis Acute Kidney Injury, Hypertension Other Pertinent Diagnosis STEMI Current Diet Cardiac Labs/Tests BUN 24 Pertinent Medications Reviewed Height 5 ft 8 in Weight 97.522 kg [place] Body Weight (kg) 70.00 BMI 32.6 Weight Status Obese Subjective/Other Information Screen for MST. 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 Pt states eating fast food and zambian food often. #1 Nutrition Diagnosis Food and nutrition-related knowledge deficit Etiology cardiac diet As Evidenced by Signs and Symptoms Pt states eating a lot and not healthy choices Nutrition Intervention Teaching Recipient Patient Learning Readiness language Teaching Methods Discussion,Handout Response to Teaching Verbalize understanding Education Handouts Provided heart healthy diet in Upper Sor[place] Barriers to Learning Language RD phone number provided Yes Patient aware of follow up options Yes Revisit per MD consult or patient Sign Off request:
[2020-06-18] MEDS: HEPARIN 5,000 UNIT/1 ML VIAL SUB-Q SCH (06:04)
[2020-06-18 08:24] LABS: BUN/Creatinine Ratio 15; Blood Urea Nitrogen 18 mg/dL (9-20); Calcium 9.4 mg/dL (8.4-10.2); Hemolysis Index 0
--- NOTE | 2020-06-18 12:12 | Progress Note ---
Assessment and Plan - Patient Problems (1) Acute ST elevation myocardial infarction (STEMI) of inferior wall Current Visit: Yes Status: Acute Plan to address problem: Status post emergency cardiac catheterization, with successful angioplasty and stenting of a completely occluded mid obtuse marginal branch of the circumflex artery. Excellent angiographic result post coronary intervention. Recommended medical therapy aspirin 325mg, Plavix 75mg, metoprolol 50mg twice daily, atorvastatin 40 mg daily, Imdur 30 mg daily. (2) Paroxysmal atrial flutter Current Visit: Yes Status: Acute Plan to address problem: We will treat the patient with a triple therapy with baby aspirin, Plavix 75 mg and Eliquis. Continue optimal beta-blockers. Otherwise, patient is okay for cardiac discharge Subjective Date of service: 06/18/20 Interval history: Patient looks and feels better, no further cardiac complaints. It will be recalled that he presented with ST segment elevation myocardial infarction, underwent cardiac catheterization with successful intervention to an occluded mid circumflex. His post intervention post MO course has been notable for the development of transient atrial flutter. The patient is currently back in a stable sinus rhythm, heart rate 80. Objective Vital Signs Temp Pulse Resp BP BP Pulse Ox 06/18/20 07:00 98 F 88 174/103 06/18/20 05:05 98.0 F 84 18 154/99 100 06/18/20 04:11 76 06/18/20 00:07 98.0 F 76 18 145/95 100 06/17/20 22:47 82 141/88 06/17/20 18:56 98.9 F 82 20 141/88 100 - Physical Examination General: No Apparent Distress HEENT: Positive: PERRL Neck: Positive: neck supple Cardiac: Positive: Reg Rate and Rhythm Lungs: Positive: Decreased Breath Sounds Neuro: Positive: Grossly Intact Abdomen: Positive: Soft Skin: Positive: Clear Extremities: Absent: edema - Labs and Meds Comprehensive Metabolic Panel 06/18/20 Range/Units 07:56 Sodium 139 (137-145) mmol/L Potassium 4.3 (3.6-5.0) mmol/L Chloride 101.8 (98-107) mmol/L Carbon Dioxide 26 (22-30) mmol/L BUN 18 (9-20) mg/dL Creatinine 1.2 (0.8-1.3) mg/dL Glucose 98 (75-100) mg/dL Calcium 9.4 (8.4-10.2) mg/dL
[2020-06-18 12:50] VITALS: BP 161/102
[2020-06-18] MEDS ORDERED: APIXABAN 2.5 MG TAB PO SCH (13:00)
[2020-06-18] MEDS: ASPIRIN EC 325 MG TAB PO SCH (13:19)
[2020-06-18] MEDS: METOPROLOL TARTRATE 50 MG TAB PO SCH (13:19)
[2020-06-18] MEDS: LISINOPRIL 5 MG TAB PO SCH (13:19)
[2020-06-18] MEDS: CLOPIDOGREL 75 MG TAB PO SCH (13:24)
--- NOTE | 2020-06-18 14:27 | Discharge Summary ---
Providers - Providers Date of Admission: 06/15/20 15:13 Date of discharge: 06/18/20 Attending physician: AI SEPULVEDA 06/15/20 Consult to Cardiac Rehabilitation [CONS] Routine Reason For Exam: post pci 06/16/20 15:44 Consult to Physician [CONS] Routine Comment: Consulting Provider: ALEJANDRINA TRIPLETT Physician Instructions: Reason For Exam: STEMI s/p PCI Primary care physician: CLEARANCE DIVER Hospitalization Condition: Serious Disposition: DC-30 STILL A PATIENT Core Measure Documentation - Palliative Care Palliative Care/ Comfort Measures: Not Applicable - Core Measures Any of the following diagnoses?: acute [place] - Acute [place] Discharge Requirements Aspirin at discharge: Yes SHIRLENE/ARB for LVSD if EF <40%: Yes Beta dov at discharge: Yes Statin for LDL = or >100 mg/dl on DC: Yes Exam - Constitutional Vitals: Temp Pulse Resp BP Pulse Ox 98.3 F 89 20 161/102 98 06/18/20 12:27 06/18/20 13:19 06/18/20 12:27 06/18/20 12:27 06/18/20 12:27 General appearance: Present: no acute distress, well-nourished - EENT Eyes: Present: PERRL, EOM intact - Neck Neck: Present: supple, normal ROM - Respiratory Respiratory effort: normal Respiratory: bilateral: diminished, negative: rales, rhonchi, wheezing - Cardiovascular Rhythm: regular Heart Sounds: Present: S1 & S2 - Extremities Extremities: no ischemia, No edema - Abdominal General gastrointestinal: Present: soft, non-tender, non-distended, normal bowel sounds - Integumentary Integumentary: Present: clear, warm - Musculoskeletal Musculoskeletal: strength equal bilaterally - Psychiatric Psychiatric: appropriate mood/affect, cooperative - Neurologic Neurologic: CNII-XII intact, moves all extremities Plan Activity: no restrictions Diet: other (Cardiac diet ) Additional Instructions: If you have worsening symptoms contact MD or go to emergency room. Advised to comply with medications, diet, follow-up visits Follow up with: IDLAIA FERNÁNDEZ MD [Primary Care Provider] - 7 Days ALEJANDRINA TRIPLETT MD [Staff Physician] - 7 Days Prescriptions: Apixaban [Eliquis] 2.5 mg PO Q12HR #60 tablet Aspirin EC [Halfprin EC] 81 mg PO QDAY #30 tablet ISOSORBIDE MONOnitrate [Imdur ER] 30 mg PO QDAY #30 tablet AtorvaSTATin [Lipitor] 40 mg PO QHS #30 tablet Metoprolol [Lopressor TAB] 50 mg PO BID #60 tablet Clopidogrel [Plavix] 75 mg PO QDAY #30 tablet lisinopriL [Zestril TAB] 5 mg PO QDAY #30 tablet
[2020-06-19] MEDS ORDERED: ASPIRIN EC 81 MG TAB PO SCH (10:00)
== END 2020-06-18 18:00 | disposition home or self-care (01) | DRG 246 ==
LOC: CATH 12:30 → ED 12:30 → EDSTATUS 13:00 → CC1 15:13 → 4A 06-16 20:24
PROVIDERS: ADMIT Internal Medicine; ATTEND Internal Medicine
PROC: 027034Z Dilation of Coronary Artery, One Artery with Drug-eluting Intraluminal Device, Percutaneous Approach (ICD-10-PCS; principal; 2020-06-15)
PROC: 4A023N7 Measurement of Cardiac Sampling and Pressure, Left Heart, Percutaneous Approach (ICD-10-PCS; 2020-06-15)
PROC: B2111ZZ Fluoroscopy of Multiple Coronary Arteries using Low Osmolar Contrast (ICD-10-PCS; 2020-06-15)
PROC: B2151ZZ Fluoroscopy of Left Heart using Low Osmolar Contrast (ICD-10-PCS; 2020-06-15)
DX: I21.19 ST elevation (STEMI) myocardial infarction involving other coronary artery of inferior wall (principal); N17.0 Acute kidney failure with tubular necrosis; I48.92 Unspecified atrial flutter; I48.91 Unspecified atrial fibrillation; I10 Essential (primary) hypertension; D64.9 Anemia, unspecified; E78.5 Hyperlipidemia, unspecified
CPT/HCPCS: 36415; 71045; 80048; 80061; 82550; 82553; 82962; 84484; 85014; 85018; 85025; 85610; 85730; 86850; 86900; 86901; 92941; 93005; 93458; G0378; A9270-GY; C1725; C1769; C1874; C1887; C1894; C9606; J1644; J2250; J2270; J3010; J7030; Q9967

== ENCOUNTER 2020-12-24 13:22 | Observation (INO) | payer SELFPAY ==
--- NOTE | 2020-12-24 13:35 | Emergency Department Report ---
Blank Doc - Documentation Documentation: 60-year-old male that presents with chest pain with shortness of breath. Kyleigh ent was sent by urgent care also for uncontrolled hypertension. 1- This initial assessment/diagnostic orders/clinical plan/ treatment(s) is/are subject to change based on pt's health status, clinical progression and re- assessment by fellow clinical providers in the ED. Further treatment and workup at subsequent clinical provers discretion. Patient/guardians urged not to elope from ED as their condition may be serious if not clinically assessed and managed. 2-cardiac work-up
[2020-12-24 14:03] LABS: Basophils # (Auto) 0.1 K/mm3 (0.0-0.1); Eosinophils # (Auto) 0.2 K/mm3 (0.0-0.4); Eosinophils % (Auto) 3.3 % (0.0-4.3); Hematocrit 41.6 % (35.5-45.6); Hemoglobin 13.7 gm/dl (11.8-15.2); Lymphocytes # (Auto) 1.7 K/mm3 (1.2-5.4); Lymphocytes % (Auto) 30.9 % (13.4-35.0); Mean Corpuscular HGB Conc 33 % (32-34); Mean Corpuscular Volume 96 fl (84-94); Monocytes # (Auto) 0.5 K/mm3 (0.0-0.8); Monocytes % (Auto) 8.1 % (0.0-7.3); Platelet Count 148 K/mm3 (140-440); Red Blood Count 4.33 M/mm3 (3.65-5.03); Red Cell Distribution Width 18.8 % (13.2-15.2)
[2020-12-24 14:13] LABS: INR 1.16 (0.87-1.13)
--- NOTE | 2020-12-24 14:25 | XRay Report ---
CHEST 2 VIEWS INDICATION: Chest Pain. COMPARISON: 06/16/2020 FINDINGS: Support devices: None. Heart: Stable mild cardiomegaly Lungs/pleura: No acute air space or interstitial disease. No pneumothorax. Additional findings: None. IMPRESSION: Cardiomegaly Signer Name: Kory Diggs Jr, MD Signed: 12/24/2020 2:21 PM Workstation Name: [id number]
[2020-12-24 14:26] LABS: Albumin 3.8 g/dL (3.9-5); Calcium 9.3 mg/dL (8.4-10.2)
[2020-12-24 17:15] LABS: Bilirubin,Urine NEG (Negative); Blood,Urine NEG (Negative); Color,Urine Yellow (Yellow); Urobilinogen,Urine < 2.0 mg/dL (<2.0)
[2020-12-24 17:18] LABS: WBC,Urine < 1.0 /HPF (0.0-6.0)
[2020-12-24] MEDS ORDERED: ASPIRIN 325 MG TAB PO ONE (17:18)
--- NOTE | 2020-12-24 17:18 | Emergency Department Report ---
ED Chest Pain HPI - General Chief Complaint: Medical Clearance Stated Complaint: HBP 180/120 Time Seen by Provider: 12/24/20 13:29 Source: patient Mode of arrival: Ambulatory Limitations: Language Barrier - History of Present Illness Initial Comments: 60-year-old male with history of CAD (STEMI 05/2020 with left circumflex stent), hypertension, paroxysmal a flutter, presents to ED with complaint of chest pain. Patient states he has been having worsening chest pressure/tightness and dyspnea on exertion over the past month. Patient went to see his primary care physician at [facility] today, he was sent to the emergency room for elevated blood pressure. Patient states he has been compliant with his BP meds. Patient reports chest pressure and tightness with exertion. He denies any associated nausea, vomiting, diaphoresis, dizziness. Patient reports his last appointment with his java web application developer was in September 2020. Patient denies any history of COVID-19. He denies any recent cough or fever. Manager Drug: Dr Hermila Rizvi ([facility]) Complaint: chest pain -: month(s) (1) Onset: during exertion Pain Location: epigastric Pain Radiation: none Severity: moderate Severity scale (0 -10): 0 Quality: tightness, pressure Consistency: intermittent Improves With: rest Worsens With: exertion re: dyspnea. denies: nausea, vomting, diaphoresis Other Symptoms: denies: cough, fever - Related Data Home Medications Medication Instructions Recorded Confirmed Last Taken Colchicine [Colcrys] 0.6 mg PO BID 12/24/20 12/24/20 Unknown Furosemide [Lasix] 20 mg PO QDAY 12/24/20 12/24/20 Unknown Metoprolol [Lopressor TAB] 50 mg PO DAILY 12/24/20 12/24/20 Unknown Potassium Chloride [K-Dur] 10 meq PO QDAY 12/24/20 12/24/20 Unknown allopurinoL [Zyloprim] 300 mg PO DAILY 12/24/20 12/24/20 Unknown lisinopriL [Zestril TAB] 20 mg PO QDAY 12/24/20 12/24/20 Unknown Previous Rx's Medication Instructions Recorded Last Taken Type AtorvaSTATin [Lipitor] 40 mg PO QHS #30 tablet 06/18/20 Unknown Rx Clopidogrel [Plavix] 75 mg PO QDAY #30 tablet 06/18/20 Unknown Rx Allergies Allergy/AdvReac Type Severity Reaction Status Date / Time No Known Allergies Allergy Verified 06/15/20 12:39 Heart Score - HEART Score History: Highly suspicious EKG: Non-specific Age: 45-65 Risk factors: > 3 risk factors or hx of atherosclerotic disease Troponin: 1-3x normal limit HEART Score: 7 ED Review of Systems ROS: Stated complaint: HBP 180/120 Other details as noted in HPI Comment: All other systems reviewed and negative Constitutional: denies: chills, fever Respiratory: SOB with exertion. denies: cough Cardiovascular: chest pain Gastrointestinal: denies: nausea, vomiting Neurological: headache. denies: vertigo ED Past Medical Hx - Past Medical History Previous Medical History?: Yes Hx Hypertension: Yes Additional medical history: HIGH URIC ACID - Social History Smoking Status: Never Smoker - Medications Home Medications: Home Medications Medication Instructions Recorded Confirmed Last Taken Type AtorvaSTATin [Lipitor] 40 mg PO QHS #30 tablet 06/18/20 12/24/20 Unknown Rx Clopidogrel [Plavix] 75 mg PO QDAY #30 tablet 06/18/20 12/24/20 Unknown Rx Colchicine [Colcrys] 0.6 mg PO BID 12/24/20 12/24/20 Unknown History Furosemide [Lasix] 20 mg PO QDAY 12/24/20 12/24/20 Unknown History Metoprolol [Lopressor TAB] 50 mg PO DAILY 12/24/20 12/24/20 Unknown History Potassium Chloride [K-Dur] 10 meq PO QDAY 12/24/20 12/24/20 Unknown History allopurinoL [Zyloprim] 300 mg PO DAILY 12/24/20 12/24/20 Unknown History lisinopriL [Zestril TAB] 20 mg PO QDAY 12/24/20 12/24/20 Unknown History ED Physical Exam - General Limitations: Language Barrier General appearance: alert, in no apparent distress - Head Head exam: Present: atraumatic, normocephalic - Eye Eye exam: Present: normal appearance, EOMI - ENT ENT exam: Present: mucous membranes moist - Neck Neck exam: Present: normal inspection - Respiratory Respiratory exam: Present: normal lung sounds bilaterally. Absent: respiratory distress - Cardiovascular Cardiovascular Exam: Present: regular rate, normal rhythm - GI/Abdominal GI/Abdominal exam: Present: soft. Absent: distended, tenderness - Extremities Exam Extremities exam: Present: pedal edema - Neurological Exam Neurological exam: Present: alert, oriented X3 - Psychiatric Psychiatric exam: Present: normal affect, normal mood - Skin Skin exam: Present: warm, dry, intact, normal color ED Course Vital Signs 12/24/20 12/24/20 12/24/20 13:29 17:01 17:32 Temperature 97.9 F Pulse Rate 76 83 74 Respiratory 20 18 Rate Blood Pressure 183/125 175/136 Blood Pressure 181/124 [Right] O2 Sat by Pulse 98 99 Oximetry 12/24/20 12/24/20 12/24/20 18:30 19:00 19:30 Temperature 98.2 F Pulse Rate 64 68 68 Respiratory 18 17 Rate Blood Pressure Blood Pressure 178/130 176/120 167/111 [Right] O2 Sat by Pulse 98 98 Oximetry 12/24/20 12/24/20 20:45 21:00 Temperature Pulse Rate 67 71 Respiratory 18 Rate Blood Pressure 176/118 Blood Pressure 156/101 [Right] O2 Sat by Pulse 100 Oximetry - Consultations Consultation #1: 12/24/20 17:56 Spoke w/ Dr Tapia, supervisor epoxy fabrication java web application developer. Recommends admission. Will consult on patient. ED Medical Decision Making - Lab Data Result diagrams: 12/24/20 13:40 12/24/20 13:40 - EKG Data -: EKG Interpreted by Ar EKG shows normal: sinus rhythm, intervals, QRS complexes Rate: normal - EKG Data When compared to previous EKG there are: no significant change Interpretation: other (T wave inversions I and aVL) - Radiology Data Radiology results: report reviewed, image reviewed - Medical Decision Making 60-year-old male presents to ED with exertional chest pain and dyspnea. EKG is unremarkable. Troponin is normal at this time. Hydralazine and labetalol given for blood pressure control. Patient also has some acute renal insufficiency as well. Spoke with java web application developer on-call, recommends patient be admitted. I spoke with Dr. Tubbs, hospitalist, who will admit the patient for further management. - Differential Diagnosis ACS, hypertensive emergency Critical care attestation.: If time is entered above; I have spent that time in minutes in the direct care of this critically ill patient, excluding procedure time. ED Disposition Clinical Impression: Chest pain, Hypertensive urgency, Acute renal failure Disposition: OP ADMIT IP TO THIS HOSP Is pt being admited?: Yes Condition: Stable Time of Disposition: 17:58
--- NOTE | 2020-12-24 18:38 | History and Physical Report ---
History of Present Illness Chief complaint: My chest hurts History of present illness: 60 YO Male with CAD S/P Stent Placement on DAPT, HTN, Atrial Flutter, HLD, Obesity presents to ED for evaluation. Pt reports" I have pain in my chest". Pt states that he has experienced chest pressure, chest tightness over the past 1 month with worsening symptoms over the past 1 day. Patient acknowledges chest discomfort, decreased exercise tolerance, dyspnea on exertion, dyspnea at rest. Patient states that he was seen and evaluated by his primary care doctor today and was instructed to seek further care at [facility]. Patient transported to [facility] via private vehicle for further care and evaluation of the a forementioned symptoms. The patient was seen and evaluated in the emergency department. All lab and imaging studies reviewed. Patient found to have clinical symptoms consistent with angina, as well as diastolic congestive heart failure. Patient also found to have acute kidney injury. Patient admitted to telemetry due to increased risk of worsening symptoms. Cardiology team consulted in ED. Patient denies fever, chills, productive cough, skin rash, recent ill contacts, or known exposure to COVID-19. Prior admission on 06/15/2020 reviewed. All medication listed at time of admission has been reconciled. Past History Past Medical History: atrial fib, hypertension Past Surgical History: No surgical history, Other (Reviewed) Social history: , lives with family. denies: smoking, alcohol abuse, prescription drug abuse Family history: diabetes, hypertension Medications and Allergies Allergies Allergy/AdvReac Type Severity Reaction Status Date / Time No Known Allergies Allergy Verified 06/15/20 12:39 Home Medications Medication Instructions Recorded Confirmed Last Taken Type AtorvaSTATin [Lipitor] 40 mg PO QHS #30 tablet 06/18/20 12/24/20 Unknown Rx Clopidogrel [Plavix] 75 mg PO QDAY #30 tablet 06/18/20 12/24/20 Unknown Rx Colchicine [Colcrys] 0.6 mg PO BID 12/24/20 12/24/20 Unknown History Furosemide [Lasix] 20 mg PO QDAY 12/24/20 12/24/20 Unknown History Metoprolol [Lopressor TAB] 50 mg PO DAILY 12/24/20 12/24/20 Unknown History Potassium Chloride [K-Dur] 10 meq PO QDAY 12/24/20 12/24/20 Unknown History allopurinoL [Zyloprim] 300 mg PO DAILY 12/24/20 12/24/20 Unknown History lisinopriL [Zestril TAB] 20 mg PO QDAY 12/24/20 12/24/20 Unknown History Review of Systems Constitutional: no weight loss, no weight gain, no fever, no sweats Ears, nose, mouth and throat: no ear pain, no decreased hearing, no nose pain, no nasal congestion, no sinus pressure Cardiovascular: chest pain, shortness of breath, dyspnea on exertion, decreased exercise tolerance, no palpitations, no rapid/irregular heart beat, no syncope Respiratory: no cough, no cough with sputum, no excessive sputum, no hemoptysis Gastrointestinal: no abdominal pain, no nausea, no vomiting, no constipation Genitourinary Male: no hematuria, no flank pain, no discharge, no urinary frequency, no urinary hesitancy, no nocturia Rectal: no pain, no incontinence, no bleeding Musculoskeletal: no neck stiffness, no neck pain, no shooting arm pain, no arm numbness/tingling, no low back pain, no leg numbness/tingling Integumentary: no rash, no pruritis, no redness, no sores, no wounds Neurological: no head injury, no transient paralysis, no paralysis, no weakness, no parathesias, no seizures Psychiatric: no anxiety, no memory loss, no change in sleep habits, no sleep disturbances, no hypersomnia, no change in appetite, no suicidal ideation Endocrine: no cold intolerance, no polyphagia, no excessive thirst, no polydipsia, no nocturia, no excessive sweating Hematologic/Lymphatic: no easy bruising, no easy bleeding, no lymphadenopathy Allergic/Immunologic: no allergic rhinitis, no wheezing, no persistent infections Exam - Constitutional Vitals: Temp Pulse Resp BP Pulse Ox 97.9 F 64 18 178/130 98 12/24/20 13:29 12/24/20 18:30 12/24/20 18:30 12/24/20 18:30 12/24/20 18:30 General appearance: Present: mild distress, obese - EENT Eyes: Present: PERRL ENT: hearing intact, clear oral mucosa - Neck Neck: Present: supple, normal ROM - Respiratory Respiratory effort: normal Respiratory: bilateral: CTA - Cardiovascular Heart Sounds: Present: S1 & S2. Absent: rub, click - Extremities Extremities: pulses symmetrical, No edema Peripheral Pulses: within normal limits - Abdominal General gastrointestinal: Present: soft, non-tender, non-distended, normal bowel sounds Male genitourinary: Present: normal - Integumentary Integumentary: Present: clear, warm, dry - Musculoskeletal Musculoskeletal: gait normal, strength equal bilaterally - Psychiatric Psychiatric: appropriate mood/affect, intact judgment & insight - Neurologic Neurologic: CNII-XII intact, moves all extremities HEART Score - HEART Score EKG: Non-specific Age: 45-65 Risk factors: > 3 risk factors or hx of atherosclerotic disease Troponin: Troponin T 0.014 ng/mL (0.00-0.029) 12/24/20 16:36 Troponin: 1-3x normal limit Results - Labs CBC & Chem 7: 12/24/20 13:40 12/24/20 13:40 Labs: Abnormal lab results 12/24/20 12/24/20 12/24/20 Range/Units 13:40 13:40 13:40 MCV 96 H (84-94) fl RDW 18.8 H (13.2-15.2) % [place] % (Auto) 8.1 H (0.0-7.3) % INR 1.16 H (0.87-1.13) BUN 21 H (9-20) mg/dL Creatinine 1.8 H (0.8-1.3) mg/dL Total Bilirubin 1.40 H (0.1-1.2) mg/dL AST 48 H (5-40) units/L Alkaline Phosphatase 255 H (35-129) units/L Albumin 3.8 L (3.9-5) g/dL Assessment and Plan - Patient Problems (1) Diastolic CHF Current Visit: Yes Status: Acute Qualifiers: Heart failure chronicity: acute on chronic Qualified Code(s): I50.33 - Acute on chronic diastolic (congestive) heart failure Plan to address problem: Strict I/O, monitor urine output every shift, daily weight, afterload reduction, blood pressure control, further testing as per cardiology team. (2) Angina at rest Current Visit: Yes Status: Acute Plan to address problem: Serial cardiac enzymes, EKG, telemetry, cardiology team consulted in ED, further testing as per cardiology team. (3) Acute kidney injury (PRINCE) with acute tubular necrosis (ATN) Current Visit: Yes Status: Acute Plan to address problem: Encourage free water intake, monitor urine output every shift, IV fluid resuscitation therapy as clinically indicated, BMP, repeat BMP in a.m. to monitor serum creatinine as well as GFR. (4) Paroxysmal atrial flutter Current Visit: No Status: Acute Plan to address problem: Continue medical management, cardiology consulted. (5) Coronary artery disease Current Visit: Yes Status: Acute Plan to address problem: Lipid panel, statin therapy as clinically indicated, dual antiplatelet therapy. Risk factor reduction. (6) DVT prophylaxis Current Visit: Yes Status: Acute Plan to address problem: SCD to bilateral lower extremities while in bed, patient is ambulatory.
[2020-12-24] MEDS ORDERED: ONDANSETRON 4 MG/2 ML INJ IV PRN (18:41)
[2020-12-24] MEDS ORDERED: ALBUTEROL 2.5 MG/3 ML NEBU IH PRN (18:41)
[2020-12-24] MEDS ORDERED: ACETAMINOPHEN 325 MG TAB PO PRN ×2 (18:41)
[2020-12-24] MEDS ORDERED: hydrALAZINE 20 MG/1 ML INJ IV ONE (19:31)
[2020-12-24 19:55] LABS: Chol/HDL Ratio 4.27 %
[2020-12-24] MEDS: COLCHICINE 0.6 MG TAB PO SCH (23:33)
[2020-12-25 02:53] LABS: Calcium 8.9 mg/dL (8.4-10.2)
[2020-12-25] MEDS ORDERED: POTASSIUM CHLORIDE ER 20 MEQ TAB PO ONE (05:05)
--- NOTE | 2020-12-25 07:57 | Progress Note ---
Assessment and Plan Assessment and plan: --Hypertensive urgency; resume all home antihypertensive meds Add oral and as needed IV hydralazine Closely monitor blood pressures --Chest pain/angina; atypical Serial cardiac enzymes negative for abnormality Continue current cardiac cardiac management --History of coronary artery disease status post PCI 05/2020 On aspirin ,Plavix, beta-blockers, statins and nitrates No SHIRLENE due to chronic kidney disease EF 50 to 55%, Cardiology consultation --A. fib flutter; Rate controlled, Continue beta-blockers anticoagulation with Eliquis 2.5 twice a day Closely monitor, Cardiology consult if needed --Acute kidney injury; Vasomotor nephropathy,Gentle hydration Monitor renal function, Avoid nephrotoxin Nephrology evaluation if needed --Obesity; BMI 34.5 Patient needs weight reduction when medically stable --DVT prophylaxis;Lovenox renal dose We will closely monitor the patient and adjust management as needed Follow cardiology evaluation and recommendations. History Interval history: I have seen and examined the patient at the bedside this morning Patient's chart and medications reviewed Patient was admitted with hypertensive urgency and atypical chest pain Patient is on multiple antihypertensive Vital signs reviewed Hospitalist Physical - Constitutional Vitals: Temp Pulse Resp BP Pulse Ox 98.0 F 67 18 134/81 94 12/25/20 00:00 12/25/20 00:00 12/25/20 00:00 12/25/20 00:00 12/25/20 00:00 General appearance: Present: mild distress, obese - EENT Eyes: Present: PERRL, EOM intact - Neck Neck: Present: supple, normal ROM - Respiratory Respiratory effort: normal Respiratory: bilateral: diminished, negative: rales, rhonchi, wheezing - Cardiovascular Rhythm: regular Heart Sounds: Present: S1 & S2 - Extremities Extremities: no ischemia, No edema - Abdominal General gastrointestinal: soft, non-tender, non-distended, normal bowel sounds - Integumentary Integumentary: Present: clear, warm - Psychiatric Psychiatric: appropriate mood/affect, cooperative - Neurologic Neurologic: moves all extremities HEART Score - HEART Score EKG: Non-specific Age: 45-65 Risk factors: > 3 risk factors or hx of atherosclerotic disease Troponin: Troponin T < 0.010 ng/mL (0.00-0.029) 12/25/20 00:37 Troponin: 1-3x normal limit Results - Labs CBC & Chem 7: 12/24/20 13:40 12/26/20 04:45 Labs: Laboratory Last Values WBC 5.7 K/mm3 (4.5-11.0) 12/24/20 13:40 RBC 4.33 M/mm3 (3.65-5.03) 12/24/20 13:40 Hgb 13.7 gm/dl (11.8-15.2) 12/24/20 13:40 Hct 41.6 % (35.5-45.6) 12/24/20 13:40 MCV 96 fl (84-94) H 12/24/20 13:40 MCH 32 pg (28-32) 12/24/20 13:40 MCHC 33 % (32-34) 12/24/20 13:40 RDW 18.8 % (13.2-15.2) H 12/24/20 13:40 Plt Count 148 K/mm3 (140-440) 12/24/20 13:40 Lymph % (Auto) 30.9 % (13.4-35.0) 12/24/20 13:40 [place] % (Auto) 8.1 % (0.0-7.3) H 12/24/20 13:40 Eos % (Auto) 3.3 % (0.0-4.3) 12/24/20 13:40 Baso % (Auto) 1.0 % (0.0-1.8) 12/24/20 13:40 Lymph # (Auto) 1.7 K/mm3 (1.2-5.4) 12/24/20 13:40 [place] # (Auto) 0.5 K/mm3 (0.0-0.8) 12/24/20 13:40 Eos # (Auto) 0.2 K/mm3 (0.0-0.4) 12/24/20 13:40 Baso # (Auto) 0.1 K/mm3 (0.0-0.1) 12/24/20 13:40 Seg Neutrophils % 56.7 % (40.0-70.0) 12/24/20 13:40 Seg Neutrophils # 3.2 K/mm3 (1.8-7.7) 12/24/20 13:40 PT 14.6 Sec. (12.2-14.9) 12/24/20 13:40 INR 1.16 (0.87-1.13) H 12/24/20 13:40 APTT 30.0 Sec. (24.2-36.6) 12/24/20 13:40 Sodium 137 mmol/L (137-145) 12/25/20 02:00 Potassium 3.2 mmol/L (3.6-5.0) L 12/25/20 02:00 Chloride 100.8 mmol/L (98-107) 12/25/20 02:00 Carbon Dioxide 25 mmol/L (22-30) 12/25/20 02:00 Anion Gap 14 mmol/L 12/25/20 02:00 BUN 20 mg/dL (9-20) 12/25/20 02:00 Creatinine 1.5 mg/dL (0.8-1.3) H 12/25/20 02:00 Estimated GFR 48 ml/min 12/25/20 02:00 BUN/Creatinine Ratio 13 % 12/25/20 02:00 Glucose 124 mg/dL (75-100) H 12/25/20 02:00 Calcium 8.9 mg/dL (8.4-10.2) 12/25/20 02:00 Total Bilirubin 1.40 mg/dL (0.1-1.2) H 12/24/20 13:40 AST 48 units/L (5-40) H 12/24/20 13:40 ALT 44 units/L (7-56) 12/24/20 13:40 Alkaline Phosphatase 255 units/L (35-129) H 12/24/20 13:40 Troponin T < 0.010 ng/mL (0.00-0.029) 12/25/20 00:37 Total Protein 6.4 g/dL (6.3-8.2) 12/24/20 13:40 Albumin 3.8 g/dL (3.9-5) L 12/24/20 13:40 Albumin/Globulin Ratio 1.5 % 12/24/20 13:40 Triglycerides 137 mg/dL (2-149) 12/24/20 16:36 Cholesterol 124 mg/dL (50-199) 12/24/20 16:36 LDL Cholesterol Direct 77 mg/dL (50-130) 12/24/20 16:36 HDL Cholesterol 29 mg/dL (40-59) L 12/24/20 16:36 Cholesterol/HDL Ratio 4.27 % 12/24/20 16:36 Urine Color Yellow (Yellow) 12/24/20 16:55 Urine Turbidity Clear (Clear) 12/24/20 16:55 Urine pH 6.0 (5.0-7.0) 12/24/20 16:55 Ur Specific [place] 1.004 (1.003-1.030) 12/24/20 16:55 Urine Protein 100 mg/dl mg/dL (Negative) 12/24/20 16:55 Urine Glucose (UA) Neg mg/dL (Negative) 12/24/20 16:55 Urine Ketones Neg mg/dL (Negative) 12/24/20 16:55 Urine Blood Neg (Negative) 12/24/20 16:55 Urine Nitrite Neg (Negative) 12/24/20 16:55 Urine Bilirubin Neg (Negative) 12/24/20 16:55 Urine Urobilinogen < 2.0 mg/dL (<2.0) 12/24/20 16:55 Ur Leukocyte Esterase Neg (Negative) 12/24/20 16:55 Urine WBC (Auto) < 1.0 /HPF (0.0-6.0) 12/24/20 16:55 Urine RBC (Auto) 1.0 /HPF (0.0-6.0) 12/24/20 16:55 Active Medications - Current Medications Current Medications: Generic Name Dose Route Start Last Admin Trade Name Freq PRN Reason Stop Dose Admin Acetaminophen 650 mg 12/24/20 18:41 Acetaminophen 325 Mg Tab PO Q4H PRN Pain MILD(1-3)/Fever >100.5/MORA Albuterol 2.5 mg 12/24/20 18:41 Albuterol 2.5 Mg/3 Ml Nebu IH Q4HRT PRN Shortness Of Breath Allopurinol 300 mg 12/25/20 10:00 Allopurinol 300 Mg Tab PO DAILY RAÚL Apixaban 2.5 mg 12/25/20 10:00 Apixaban 2.5 Mg Tab PO Q12HR [facility] Protocol Atorvastatin Calcium 40 mg 12/24/20 22:00 12/24/20 23:32 Atorvastatin 40 Mg Tab PO 40 mg QHS RAÚL Administration Clopidogrel Bisulfate 75 mg 12/25/20 10:00 Clopidogrel 75 Mg Tab PO QDAY RAÚL Colchicine 0.6 mg 12/24/20 22:00 12/24/20 23:33 Colchicine 0.6 Mg Tab PO Not Given BID [facility] Furosemide 20 mg 12/25/20 10:00 Furosemide 20 Mg Tab PO QDAY [facility] Lisinopril 20 mg 12/25/20 10:00 Lisinopril 20 Mg Tab PO QDAY [facility] Metoprolol Succinate 50 mg 12/25/20 10:00 Metoprolol Succinate Xl 50 Mg Tab PO QDAY [facility] Ondansetron HCl 4 mg 12/24/20 18:41 Ondansetron 4 Mg/2 Ml Inj IV Q8H PRN Nausea And Vomiting Potassium Chloride 10 meq 12/25/20 10:00 Potassium Chloride Er 10 Meq Tab PO QDAY [facility] Sodium Chloride 10 ml 12/24/20 22:00 12/24/20 23:32 Sodium Chloride 0.9% 10 Ml Flush Syringe IV 10 ml BID [facility] Administration Sodium Chloride 10 ml 12/24/20 18:41 Sodium Chloride 0.9% 10 Ml Flush Syringe IV PRN PRN LINE FLUSH Sodium Chloride 10 ml 12/24/20 18:41 Sodium Chloride 0.9% 10 Ml Flush Syringe IV PRN PRN LINE FLUSH
[2020-12-25] MEDS: CLOPIDOGREL 75 MG TAB PO SCH ×2 (08:56→09:33)
[2020-12-25] MEDS: APIXABAN 2.5 MG TAB PO SCH ×3 (08:56→22:22)
[2020-12-25] MEDS: FUROSEMIDE 20 MG TAB PO SCH ×2 (08:56→09:32)
[2020-12-25] MEDS: METOPROLOL SUCCINATE XL 50 MG TAB PO SCH ×2 (08:56→09:33)
[2020-12-25] MEDS: ASPIRIN EC 81 MG TAB PO SCH ×2 (08:56→09:32)
[2020-12-25] MEDS: POTASSIUM CHLORIDE ER 10 MEQ TAB PO SCH ×2 (08:56→09:32)
[2020-12-25] MEDS: allopurinoL 300 MG TAB PO SCH ×2 (08:56→09:33)
[2020-12-25] MEDS ORDERED: LISINOPRIL 20 MG TAB PO SCH (10:00)
--- NOTE | 2020-12-25 11:06 | Consultation ---
History of Present Illness Consult date: 12/25/20 Consult reason: hypertension, known to you History of present illness: 60-year old Serbian speaking M who was hospitalized at this hospital [address] elevation in the inferior leads. He underwent angioplasty and stenting of the mid obtuse marginal branch of the circumflex artery using Xience drug-eluting stent. LV systolic function was well preserved ejection fraction 50-55%. Post [place] hospital course, patient developed transient atrial flutter. On discharge he was placed on triple therapy with Eliquis, Plavix, and aspirin therapy. Patient was sent to the emergency department for uncontrolled hypertension, BP 183/125 on presentation. Patient has a history of hypertension and recommended Lisinopril 40 mg once daily for management. Chest x-ray is negative but initial labs shows a creatinine at 1.8. His presenting ECG is sinus rhythm, no acute ischemic changes. However, the patient had a change in rhythm on telemetry [facility]. A repeat ECG is atrial flutter with a well controlled ventricular rate. Cardiology consultation has been requested. Past History Past Medical History: atrial fib, CAD, hypertension Past Surgical History: No surgical history Social history: , lives with family. denies: smoking, alcohol abuse, p rescription drug abuse Family history: diabetes, hypertension Medications and Allergies Allergies Allergy/AdvReac Type Severity Reaction Status Date / Time No Known Allergies Allergy Verified 06/15/20 12:39 Home Medications Medication Instructions Recorded Confirmed Last Taken Type AtorvaSTATin [Lipitor] 40 mg PO QHS #30 tablet 06/18/20 12/24/20 Unknown Rx Clopidogrel [Plavix] 75 mg PO QDAY #30 tablet 06/18/20 12/24/20 Unknown Rx Colchicine [Colcrys] 0.6 mg PO BID 12/24/20 12/24/20 Unknown History Furosemide [Lasix] 20 mg PO QDAY 12/24/20 12/24/20 Unknown History Metoprolol [Lopressor TAB] 50 mg PO DAILY 12/24/20 12/24/20 Unknown History Potassium Chloride [K-Dur] 10 meq PO QDAY 12/24/20 12/24/20 Unknown History allopurinoL [Zyloprim] 300 mg PO DAILY 12/24/20 12/24/20 Unknown History lisinopriL [Zestril TAB] 20 mg PO QDAY 12/24/20 12/24/20 Unknown History Active Meds: Active Medications Acetaminophen (Acetaminophen 325 Mg Tab) 650 mg PO Q4H PRN PRN Reason: Pain MILD(1-3)/Fever >100.5/MORA Albuterol (Albuterol 2.5 Mg/3 Ml Nebu) 2.5 mg IH Q4HRT PRN PRN Reason: Shortness Of Breath Allopurinol (Allopurinol 300 Mg Tab) 300 mg PO DAILY [facility] Last Admin: 12/25/20 09:33 Dose: Not Given Documented by: Apixaban (Apixaban 2.5 Mg Tab) 2.5 mg PO Q12HR [facility]; Protocol Last Admin: 12/25/20 09:32 Dose: Not Given Documented by: Aspirin (Aspirin Ec 81 Mg Tab) 81 mg PO QDAY [facility] Last Admin: 12/25/20 09:32 Dose: Not Given Documented by: Atorvastatin Calcium (Atorvastatin 40 Mg Tab) 40 mg PO QHS [facility] Last Admin: 12/24/20 23:32 Dose: 40 mg Documented by: Clopidogrel Bisulfate (Clopidogrel 75 Mg Tab) 75 mg PO QDAY [facility] Last Admin: 12/25/20 09:33 Dose: Not Given Documented by: Colchicine (Colchicine 0.6 Mg Tab) 0.6 mg PO BID [facility] Last Admin: 12/24/20 23:33 Dose: Not Given Documented by: Furosemide (Furosemide 20 Mg Tab) 20 mg PO QDAY [facility] Last Admin: 12/25/20 09:32 Dose: Not Given Documented by: Metoprolol Succinate (Metoprolol Succinate Xl 50 Mg Tab) 50 mg PO QDAY [facility] Last Admin: 12/25/20 09:33 Dose: Not Given Documented by: Ondansetron HCl (Ondansetron 4 Mg/2 Ml Inj) 4 mg IV Q8H PRN PRN Reason: Nausea And Vomiting Potassium Chloride (Potassium Chloride Er 10 Meq Tab) 10 meq PO QDAY [facility] Last Admin: 12/25/20 09:32 Dose: Not Given Documented by: Sodium Chloride (Sodium Chloride 0.9% 10 Ml Flush Syringe) 10 ml IV BID [facility] Last Admin: 12/25/20 09:33 Dose: Not Given Documented by: Sodium Chloride (Sodium Chloride 0.9% 10 Ml Flush Syringe) 10 ml IV PRN PRN PRN Reason: LINE FLUSH Sodium Chloride (Sodium Chloride 0.9% 10 Ml Flush Syringe) 10 ml IV PRN PRN PRN Reason: LINE FLUSH Valsartan (Valsartan 160mg Tab) 160 mg PO DAILY RAÚL Review of Systems Cardiovascular: no chest pain, no palpitations, no lightheadedness, no shortness of breath Physical Examination Vital Signs Temp Pulse Resp BP Pulse Ox 97.9 F 76 20 183/125 98 12/24/20 13:29 12/24/20 13:29 12/24/20 13:29 12/24/20 13:29 12/24/20 13:29 General appearance: no acute distress HEENT: Positive: PERRL Neck: Positive: trachea midline Cardiac: Positive: irregularly irregular Lungs: Positive: Decreased Breath Sounds Neuro: Positive: Grossly Intact Results 12/24/20 13:40 12/25/20 08:24 Cardiac Enzymes 12/24/20 Range/Units 13:40 AST 48 H (5-40) units/L Coagulation 12/24/20 Range/Units 13:40 PT 14.6 (12.2-14.9) Sec. INR 1.16 H (0.87-1.13) APTT 30.0 (24.2-36.6) Sec. Lipids 12/24/20 Range/Units 16:36 Triglycerides 137 (2-149) mg/dL Cholesterol 124 (50-199) mg/dL HDL Cholesterol 29 L (40-59) mg/dL Cholesterol/HDL Ratio 4.27 % CBC 12/24/20 Range/Units 13:40 WBC 5.7 (4.5-11.0) K/mm3 RBC 4.33 (3.65-5.03) M/mm3 Hgb 13.7 (11.8-15.2) gm/dl Hct 41.6 (35.5-45.6) % Plt Count 148 (140-440) K/mm3 Lymph # (Auto) 1.7 (1.2-5.4) K/mm3 [place] # (Auto) 0.5 (0.0-0.8) K/mm3 Eos # (Auto) 0.2 (0.0-0.4) K/mm3 Baso # (Auto) 0.1 (0.0-0.1) K/mm3 Comprehensive Metabolic Panel 12/24/20 12/25/20 12/25/20 Range/Units 13:40 02:00 08:24 Sodium 141 137 141 (137-145) mmol/L Potassium 3.7 3.2 L 3.3 L (3.6-5.0) mmol/L Chloride 103.0 100.8 103.8 (98-107) mmol/L Carbon Dioxide 28 25 27 (22-30) mmol/L BUN 21 H 20 17 (9-20) mg/dL Creatinine 1.8 H 1.5 H 1.5 H (0.8-1.3) mg/dL Glucose 84 124 H 94 (75-100) mg/dL Calcium 9.3 8.9 9.0 (8.4-10.2) mg/dL AST 48 H (5-40) units/L ALT 44 (7-56) units/L Alkaline Phosphatase 255 H (35-129) units/L Total Protein 6.4 (6.3-8.2) g/dL Albumin 3.8 L (3.9-5) g/dL Assessment and Plan Hypertension, uncontrolled Acute renal failure Hx of [place]/CAD [facility] 05/2020: PCI of the mid obtuse marginal branch of the circumflex artery using Xience drug-eluting stent. LV systolic function was well preserved ejection fraction 50-55%. Paroxysmal atrial flutter Eliquis for AC has been resumed Recommendations: Discontinue Lisinopril and replace with Valsartan 160 mg daily. Will use Amiodarone for suppression of paroxysmal atrial flutter.
[2020-12-25] MEDS: COLCHICINE 0.6 MG TAB PO SCH (11:37)
[2020-12-25] MEDS ORDERED: FLU VACC QUAD 2020-2021 (6 months +)/PF 60 0.5 ML SYRINGE IM ONE (12:00)
[2020-12-25] MEDS ORDERED: AMIODARONE 150 MG in DEXTROSE 5% IN WATER 97 ML IV ONE (12:00)
[2020-12-25] MEDS: VALSARTAN 160MG TAB PO SCH (13:16)
[2020-12-25] MEDS ORDERED: hydrALAZINE 20 MG/1 ML INJ IV PRN (18:51)
[2020-12-25] MEDS: hydrALAZINE 25 MG TAB PO SCH (22:22)
[2020-12-26 05:34] LABS: Calcium 8.8 mg/dL (8.4-10.2)
[2020-12-26] MEDS: hydrALAZINE 25 MG TAB PO SCH ×2 (07:43→13:29)
--- NOTE | 2020-12-26 08:11 | Event Note ---
Date: 12/25/20 Cardiology evaluation and recommendations noted and appreciated. Patient received loading dose of amiodarone IV x1 followed by oral amiodarone 200 mg daily Patient's blood pressure medications were adjusted, with mild improvement We will closely monitor the patient and adjust the management as needed Possible discharge home tomorrow if stable and cleared by cards
[2020-12-26] MEDS ORDERED: AMIODARONE 200 MG TAB PO SCH (10:00)
[2020-12-26] MEDS: CLOPIDOGREL 75 MG TAB PO SCH (10:44)
[2020-12-26] MEDS: allopurinoL 300 MG TAB PO SCH (10:44)
[2020-12-26] MEDS: POTASSIUM CHLORIDE ER 10 MEQ TAB PO SCH (10:44)
[2020-12-26] MEDS: VALSARTAN 160MG TAB PO SCH (10:44)
[2020-12-26] MEDS: ASPIRIN EC 81 MG TAB PO SCH (10:44)
[2020-12-26] MEDS: METOPROLOL SUCCINATE XL 50 MG TAB PO SCH (10:44)
[2020-12-26] MEDS: APIXABAN 2.5 MG TAB PO SCH (10:44)
[2020-12-26] MEDS: FUROSEMIDE 20 MG TAB PO SCH (10:44)
--- NOTE | 2020-12-26 11:27 | Progress Note ---
Assessment and Plan Hypertension Acute renal failure Hx of [place]/CAD [facility] 05/2020: PCI of the mid obtuse marginal branch of the circumflex artery using Xience drug-eluting stent. LV systolic function was well preserved ejection fraction 50-55%. on plavix and aspirin Paroxysmal atrial flutter Eliquis for AC has been resumed Recommendations: Will increase Valsartan 160 mg twice daily for hypertension. Continue oral anticoagulation and amiodarone for paroxysmal atrial flutter. Continue medical therapy for coronary artery disease including DAPT with aspirin and plavix. Stable cardiac casarez for discharge. Patient will follow up in our office as previously scheduled. Subjective Date of service: 12/26/20 Interval history: No cardiac reports. Blood pressure has improved but remains mildly elevated. Patient has reverted back to sinus rhythm on telemetry. Objective Vital Signs Temp Pulse Resp BP Pulse Ox 12/26/20 11:08 97.5 F L 73 15 159/105 99 12/26/20 10:48 73 12/26/20 08:07 97.9 F 72 20 153/99 96 12/26/20 04:40 97.6 F 70 18 145/88 96 12/26/20 02:45 72 154/106 12/26/20 00:29 97.4 F L 72 16 154/106 93 12/25/20 22:22 71 155/98 12/25/20 22:00 67 12/25/20 19:08 97.7 F 71 16 155/98 98 12/25/20 15:44 97.3 F L 69 18 170/111 99 12/25/20 11:36 97.4 F L 69 18 161/117 97 - Physical Examination General: No Apparent Distress HEENT: Positive: PERRL Neck: Positive: trachea midline Cardiac: Positive: Reg Rate and Rhythm Lungs: Positive: Decreased Breath Sounds Neuro: Positive: Grossly Intact Extremities: Absent: edema - Labs and Meds Comprehensive Metabolic Panel 12/26/20 Range/Units 04:45 Sodium 143 (137-145) mmol/L Potassium 3.6 (3.6-5.0) mmol/L Chloride 106.9 (98-107) mmol/L Carbon Dioxide 25 (22-30) mmol/L BUN 19 (9-20) mg/dL Creatinine 1.5 H (0.8-1.3) mg/dL Glucose 94 (75-100) mg/dL Calcium 8.8 (8.4-10.2) mg/dL
--- NOTE | 2020-12-26 12:21 | Discharge Summary ---
Providers - Providers Date of Admission: 12/24/20 18:41 Date of discharge: 12/26/20 Attending physician: AI SEPULVEDA 12/24/20 Consult to Cardiac Rehabilitation [CONS] Routine Reason For Exam: Phase I 12/25/20 08:11 Consult to Physician [CONS] Routine Comment: Consulting Provider: ALEJANDRINA TRIPLETT Physician Instructions: Reason For Exam: Chest pain/CAD s/p PCI [05/2020] 12/25/20 09:00 Consult to Wound/ET Nurse [CONS] Routine Reason For Exam: wound eval Primary care physician: [employer] TECHNICIAN Hospitalization Condition: Stable Disposition: DC-01 TO HOME OR SELFCARE Time spent for discharge: 35 min Core Measure Documentation - Palliative Care Palliative Care/ Comfort Measures: Not Applicable - Core Measures Any of the following diagnoses?: none Exam - Constitutional Vitals: Temp Pulse Resp BP Pulse Ox 97.5 F L 74 15 159/105 99 12/26/20 11:08 12/26/20 11:08 12/26/20 11:08 12/26/20 11:08 12/26/20 11:08 General appearance: Present: no acute distress, well-nourished - EENT Eyes: Present: PERRL, EOM intact - Neck Neck: Present: supple, normal ROM - Respiratory Respiratory effort: normal Respiratory: bilateral: diminished, negative: rales, rhonchi, wheezing - Cardiovascular Rhythm: regular Heart Sounds: Present: S1 & S2 - Extremities Extremities: no ischemia, No edema - Abdominal General gastrointestinal: Present: soft, non-tender, non-distended, normal bowel sounds - Integumentary Integumentary: Present: clear, warm - Musculoskeletal Musculoskeletal: strength equal bilaterally - Psychiatric Psychiatric: appropriate mood/affect, cooperative - Neurologic Neurologic: moves all extremities Plan Activity: advance as tolerated Diet: other (Cardiac diet) Additional Instructions: Advised to follow with esl professor per schedule. Strongly advised to comply with medications, diet and follow-up visits. If you have worsening symptoms contact MD or go to emergency room as needed Follow up with: PRIMARY CAREMD [Primary Care Provider] - 3-5 Days ALEJANDRINA TRIPLETT MD [Staff Physician] - 14 Days Prescriptions: Amiodarone [Cordarone 200 MG TAB] 200 mg PO QDAY #30 tablet Valsartan [Diovan] 160 mg PO BID #60 tablet Apixaban [Eliquis] 2.5 mg PO Q12HR #60 tablet Aspirin EC [Halfprin EC] 81 mg PO QDAY #30 tablet Hydralazine HCl 50 mg PO Q8H #90 tablet AtorvaSTATin [Lipitor] 40 mg PO QHS #30 tablet Metoprolol Xl [Metoprolol SUCCINATE ER TAB] 50 mg PO QDAY #30 tablet Clopidogrel [Plavix] 75 mg PO QDAY #30 tablet
[2020-12-26 15:31] VITALS: BP 152/102
[2020-12-26] MEDS ORDERED: VALSARTAN 160MG TAB PO SCH (22:00)
== END 2020-12-26 16:36 | disposition home or self-care (01) ==
LOC: ED 13:22 → 4A 18:41
PROVIDERS: ADMIT Internal Medicine; ATTEND Internal Medicine
DX: I16.0 Hypertensive urgency (principal); I11.0 Hypertensive heart disease with heart failure; I50.33 Acute on chronic diastolic (congestive) heart failure; N17.0 Acute kidney failure with tubular necrosis; I20.8 Other forms of angina pectoris; I48.92 Unspecified atrial flutter; E66.9 Obesity, unspecified; E78.5 Hyperlipidemia, unspecified; Z95.1 Presence of aortocoronary bypass graft; Z68.34 Body mass index [BMI] 34.0-34.9, adult
CPT/HCPCS: 36415; 71046; 80048; 80053; 80061; 81001; 83735; 84484; 85025; 85610; 85730; 93005; 96374; 96375; 96376; 99285; A9270; G0378; J0282; J0360; 90686